=== PATIENT | female | born 1945 | race Caucasian/White ===

== ENCOUNTER 2016-12-24 00:28 | Inpatient (IN) | payer MEDICARE ==
[~2016-12-24] VITALS: Ht 162.6 cm; Wt 90.4 kg
[2016-12-24] VITALS (22 sets, daily range): BP systolic 88–123; BP diastolic 50–87; PULSE 87–121; RESP 15–18; TEMP 97.7–99; O2SAT 98–100
[2016-12-24] MEDS ORDERED: SODIUM CHLORIDE 0.9% FLUSH 10 ML FLUSH IVF PRN (00:30)
[2016-12-24] MEDS ORDERED: MIDAZOLAM 100 MG/ML INJ 100 ML IV SCH (00:30)
[2016-12-24] MEDS ORDERED: CEFEPIME INJ 2,000 MG in SODIUM CHLORIDE 0.9% INJ 100 ML IV ONE (00:30)
[2016-12-24] MEDS ORDERED: SODIUM CHLOR 0.9% 1000 ML INJ 1,000 ML IV ONE ×5 (00:30→02:43)
[2016-12-24] MEDS ORDERED: AZITHROMYCIN INJ 500 MG in SODIUM CHLOR 0.9% 250 ML INJ 250 ML IV ONE (00:30)
[2016-12-24] MEDS ORDERED: MIDAZOLAM HCL 2 MG/2 ML VIAL IV ONE (00:30)
--- NOTE | 2016-12-24 00:41 | PD ---
HPI Chief Complaint: Respiratory Distress Time Seen by Provider: 00:30 Travel History International Travel<30 days: No (unable to obtain, intubated) Contact w/Intl Traveler<30days: No Traveled to known affect area: No History of Present Illness HPI The patient is a 71-year-old female who presents to the emergency department via EMS for respiratory distress and subsequent respiratory failure. According to EMS the patient was recently diagnosed with bronchitis and has been dealing with shortness of breath and chest congestion. The patient used her inhaler several times earlier today without any alleviation of her symptoms and [place] EMS states when they arrived the patient was short of breath, had audible wheezing, with a respiratory rate of 30, they then stated she had increased work of breathing and her GCS dropped to 9 with significant increase in respiratory rate and work of breathing. Therefore, EMS initially tried to place the patient on BiPAP, but subsequent intubated the patient in the field. The patient received Ativan 4 mg intravenously, etomidate 20 mg intravenously, and morphine 8 mg intravenously. The patient does have a history of COPD according to EMS but no known history congestive heart failure. EMS states the patient bit her tongue after intubation, therefore, they called M.D. control and were advised to administer the morphine prior to arrival. No further information is obtainable from the patient. The patient has a history of allergies to latex and Remicade. [facility] Past Medical History Narrative Medical COPD according to EMS Past Surgical History Surgical History: Unable to Obtain Social History Tobacco Use: No (unable to obtain, patient is intubated) Allergies-Medications (Allergen,Severity, Reaction): Coded Allergies: Latex (Verified Allergy, Severe, 12/24/16) Remicade (Verified Allergy, Intermediate, 12/24/16) Reported Meds & Prescriptions Reported Meds & Active Scripts Active Reported Stiolto Respimat Inh (Tiotropium-Olodaterol Inh) 2.5-2.5 Mcg/Act Aero 2 Puff INH DAILY Ofloxacin Opth Drops 0.3 % Drops 1 Drop EACH EYE Q6HR Atenolol 25 Mg Tab 25 Mg PO DAILY Tizanidine (Tizanidine HCl) 4 Mg Cap 4 Mg PO Q6 Lasix (Furosemide) 40 Mg Tab 40 Mg PO BID Allopurinol 100 Mg Tab 100 Mg PO DAILY Hydrocodone-Acetaminophen 5-325 mg Tab 1 Tab PO Q12 PRN Promethazine (Promethazine HCl) 12.5 Mg Tab 12.5 Mg PO Q4H PRN Hydrochlorothiazide 12.5 Mg Tab 12.5 Mg PO DAILY Robitussin 12 Hour Cough Liq (Dextromethorphan Polistirex Liq) 30 Mg/5 Ml Anupama 5 Ml PO Q12H PRN 19 ( Vit W/ Docusate-Fe Fu) 1 Tab Tab 1 Tab PO DAILY Nexium 24 HR (Esomeprazole DR) 20 Mg Tabdr 22.3 Mg PO DAILY Morphine ER (Morphine Sulfate) 15 Mg Tab 15 Mg PO DAILY Zoloft (Sertraline HCl) 50 Mg Tab 50 Mg PO DAILY Vitamin D3 (Cholecalciferol) 2,000 Unit Cap 2,000 Units PO DAILY Review of Systems ROS Limitations: Intubated, Other: (history obtained from EMS) Except as stated in HPI: all other systems reviewed are Neg Respiratory: Positive: Cough, Shortness of Breath, Wheezing Physical Exam Narrative GENERAL: 71-year-old female who arrives via EMS intubated on a ventilator. SKIN: Focused skin assessment warm/dry. HEAD: Atraumatic. Normocephalic. EYES: Pupils equal and round. 2 mm bilateral. Slow to react. ENT: No nasal bleeding or discharge. Endotracheal tube in place. Blood noted on the lower lip. NECK: Trachea midline. No JVD. CARDIOVASCULAR: Regular, tachycardic with a heart rate of 125. RESPIRATORY: Ventilated, bilateral breath sounds with prolonged expiratory phase , type breath sounds, and late wheeze. GASTROINTESTINAL: Abdomen soft, visible large ventral hernia that is reducible. MUSCULOSKELETAL: No obvious deformities. No clubbing. No cyanosis. No edema. NEUROLOGICAL: Intubated. PSYCHIATRIC: Unable to obtain. Data Data Last Documented VS Vital Signs Date Time Temp Pulse Resp B/P Pulse Ox O2 Delivery O2 Flow Rate FiO2 12/24/16 02:07 92 18 89/52 100 Ventilator 60 12/24/16 00:41 99.0 Orders Complete Blood Count With Diff (12/24/16 00:30) Comprehensive Metabolic Panel (12/24/16 00:30) B-Type Natriuretic Peptide (12/24/16 00:30) Act Partial Throm Time (Ptt) (12/24/16 00:30) Prothrombin Time / Inr (Pt) (12/24/1630) Magnesium (Mg) (12/24/16:30) Ckmb (Isoenzyme) Profile (12/24/16) Troponin I (12/24/16) Arterial Blood Gas (Abg) (12/24/16) Urinalysis - C+S If Indicated (12/24/16) Influenzae A/B Antigen (12/24/16) Blood Culture (12/24/16) Iv Access Insert/Monitor (12/24/16) Electrocardiogram (12/24/16) Ecg Monitoring (12/24/16) Oximetry (12/24/16) Oxygen Administration (12/24/16) Chest, Single Ap (12/24/16) Urinary Catheter Insert/Apply (12/24/16) Sodium Chloride 0.9% Flush (Ns Flush) (12/24/16) Albuterol-Ipratropium Neb (Duoneb Neb) (12/24/1630) Midazolam Inj (Versed Inj) (12/24/1630) Midazolam Inj (Versed Inj) (12/24/1630) Neurological Rass Scale Q30MX2,Q2HX4,Q4H (12/24/16:30) Neurological Rass Scale Q30MX2,Q2HX4,Q4H (12/24/16:30) Fentanyl Drip (Fentanyl Drip) (12/24/16:30) Lactic Acid (12/24/16:30) Sodium Chlor 0.9% 1000 Ml Inj (Ns 1000 M (12/24/16 00:30) Cefepime Inj (Maxipime Inj) (12/24/16:30) Azithromycin Inj (Zithromax Inj) (12/24/16:30) Sodium Chlor 0.9% 1000 Ml Inj (Ns 1000 M (12/24/16 01:00) Sodium Chlor 0.9% 1000 Ml Inj (Ns 1000 M (12/24/16 01:00) CKMB (12/24/16:30) CKMB% (4/22/17 00:30) Aspirin Supp (Aspirin Supp) (12/24/16 02:00) Admit Order (Ed Use Only) (12/24/16 02:21) Labs Laboratory Tests Test 12/24/16 12/24/16 00:30 01:30 White Blood Count 19.9 TH/MM3 Red Blood Count 4.35 MIL/MM3 Hemoglobin 12.8 GM/DL Hematocrit 40.1 % Mean Corpuscular Volume 92.3 FL Mean Corpuscular Hemoglobin 29.5 PG Mean Corpuscular Hemoglobin 31.9 % Concent Red Cell Distribution Width 14.5 % Platelet Count 269 TH/MM3 Mean Platelet Volume 8.0 FL Neutrophils (%) (Auto) 78.7 % Lymphocytes (%) (Auto) 16.5 % Monocytes (%) (Auto) 4.1 % Eosinophils (%) (Auto) 0.3 % Basophils (%) (Auto) 0.4 % Neutrophils # (Auto) 15.6 TH/MM3 Lymphocytes # (Auto) 3.3 TH/MM3 Monocytes # (Auto) 0.8 TH/MM3 Eosinophils # (Auto) 0.0 TH/MM3 Basophils # (Auto) 0.1 TH/MM3 CBC Comment DIFF FINAL Differential Comment Prothrombin Time 12.3 SEC Prothromb Time International 1.1 RATIO Ratio Activated Partial 32.4 SEC Thromboplast Time Urine Color YELLOW Urine Turbidity CLEAR Urine pH 5.0 Urine Specific [place] 1.014 Urine Protein 100 mg/dL Urine Glucose (UA) NEG mg/dL Urine Ketones NEG mg/dL Urine Occult Blood NEG Urine Nitrite NEG Urine Bilirubin NEG Urine Urobilinogen LESS THAN 2.0 MG/DL Urine Leukocyte Esterase NEG Urine RBC 5 /hpf Urine WBC 2 /hpf Urine Squamous Epithelial 1 /hpf Cells Urine Amorphous Sediment FEW Urine Bacteria RARE /hpf Urine Hyaline Casts 21 /lpf Urine Mucus FEW /lpf Microscopic Urinalysis Comment CULT NOT INDICATED Sodium Level 135 MEQ/L Potassium Level 4.0 MEQ/L Chloride Level 100 MEQ/L Carbon Dioxide Level 19.6 MEQ/L Anion Gap 15 MEQ/L Blood Urea Nitrogen 31 MG/DL Creatinine 1.61 MG/DL Estimat Glomerular Filtration 32 ML/MIN Rate Random Glucose 372 MG/DL Lactic Acid Level 2.9 mmol/L Calcium Level 8.2 MG/DL Magnesium Level 1.4 MG/DL Total Bilirubin 0.8 MG/DL Aspartate Amino Transf 25 U/L (AST/SGOT) Alanine Aminotransferase 22 U/L (ALT/SGPT) Alkaline Phosphatase 100 U/L Total Creatine Kinase 215 U/L Creatine Kinase MB 7.7 NG/ML Creatine Kinase MB % 3.6 % Troponin I 0.23 NG/ML B-Type Natriuretic Peptide 302 PG/ML Total Protein 7.8 GM/DL Albumin 3.6 GM/DL Blood Gas Puncture Site RT FOOT Blood Gas Patient Temperature 98.6 Blood Gas HCO3 17 mmol/L Blood Gas Base Excess -9.5 mmol/L Blood Gas Oxygen Saturation 99 % Arterial Blood pH 7.21 Arterial Blood Partial 44 mmHg Pressure CO2 Arterial Blood Partial 480 mmHG Pressure O2 Arterial Blood Oxygen Content 16.1 Vol % Arterial Blood 1.3 % Carboxyhemoglobin Arterial Blood Methemoglobin 0.1 % Blood Gas Hemoglobin 10.7 G/DL Oxygen Delivery Device VENTILATOR Blood Gas Ventilator Setting Blood Gas Inspired Oxygen 100 % MDM Medical Decision Making Medical Screen Exam Complete: Yes Emergency Medical Condition: Yes Medical Record Reviewed: Yes Interpretation(s) EKG reveals sinus tachycardia with a heart rate of 126. RSR prime, appears to be intraventricular conduction delay versus right bundle-branch block. Chest x-ray reveals endotracheal tube in good position. Right lower lobe infiltrate. Differential Diagnosis Differential diagnosis includes COPD exacerbation, respiratory distress, respiratory failure, pneumonia, pulmonary embolism, acute coronary syndrome, STEMI, pleural effusion, metabolic acidosis. Narrative Course IV was established, labs are drawn and sent, and the patient was placed on cardiac telemetry monitoring and continuous pulse oximetry monitoring. EKG was ordered and interpreted. Chest x-ray was obtained as patient was intubated in field and placed on a ventilator. Blood cultures and lactic acid were sent to lab. The patient was administered DuoNeb nebs 3, she received Solu-Medrol 125 g intravenously by EMS prior to arrival. After blood cultures and lactic acid were sent to lab, patient was administered cefepime and Zithromax, rectal temperature was 99. The patient was placed on a Versed drip and a fentanyl drip , administered Versed 5 mg intravenously upon arrival secondary to biting on the endotracheal tube. The patient was administered 3 L of IV fluids, her blood pressure remained with a systolic in the 80s and diastolic in the 50s, if this persists after 3 L of fluid, patient will need Levophed. Chest x-ray reveals round pneumonia, patient's white count is elevated, patient is tachycardic, has elevated lactic acid, and elevated creatinine, consistent with severe sepsis, however, patient's blood pressure is low despite 3 L, consistent with septic shock. I do discussion with the patient's at bedside. The patient will be admitted to the intensive care unit. A call was placed to the on-call multi craft maintenance technician for admission. Troponin was elevated, most likely secondary to the sepsis/lactic acidosis with acute renal failure, however, patient was administered aspirin rectally. After the third liter of IV fluids, the patient's blood pressure responded with a systolic in the 120s and diastolic in the 80s, therefore, no acute indication for Levophed. Critical Care Narrative Aggregate critical care time was 40 minutes. Time to perform other separately billable procedures was not included in the critical care time. My time did not include minutes spent treating any other patients simultaneously or on activities that did not directly contribute to the patient's treatment. The services I provided to this patient were to treat and/or prevent clinically significant deterioration that could result in: Anoxia, hypoxia, aspiration, sepsis, septic shock, . I provided critical care services requiring my management, as noted below: Chart data review, documentation time, medication orders and management, vital sign assessments/reviewing monitor data, ordering and reviewing lab tests, ordering and interpreting/reviewing x-rays and diagnostic studies, care of the patient and discussion of the patient with the admitting physicians. Sepsis Criteria SIRS Criteria (2 or more): Heart rate over 90, WBC > 44486, < 4000 or > 10% bands Severe Sepsis (+one): Lactate >2 Septic Shock Criteria: Unresponsive to 30ml/kg fluid bolus Criteria Outcome: Meets septic shock criteria Physician Communication Physician Communication The on-call multi craft maintenance technician was paged for admission. I discussed the patient with Dr. Rene who agrees with admission. Diagnosis Primary Impression: Respiratory failure Qualified Code: J96.00 - Acute respiratory failure, unspecified whether with hypoxia or hypercapnia Additional Impressions: Septic shock Pneumonia Qualified Code: J18.1 - Pneumonia of right lower lobe due to infectious organism Admitting Information Admitting Physician Requests: Admit Condition: Critical Marquez Kinsey MD Dec 24, 2016 00:41
[2016-12-24] MEDS: fentaNYL DRIP 250 ML IV SCH (00:46)
[2016-12-24 00:59] LABS: BACTERIA, URINE RARE /hpf; BLOOD, URINE NEG (NEG); COMMENT (UR) CULT NOT INDICATED; CULTURE IF INDICATED CULT NOT INDICATED; GLUCOSE,URINE NEG (NEG); HYALINE CAST, URINE 21 /lpf (RARE); KETONE, URINE NEG (NEG); MUCUS URINE FEW /lpf (OCC); NITRITE,URINE NEG (NEG); SQUAMOUS EPITHELIAL CELL URINE 1 /hpf (0-5); URINE COLOR YELLOW (YELLW/STRAW)
[2016-12-24 01:00] LABS: AUTOMATED NEUTROPHIL # 15.6 TH/MM3 (1.8-7.7); BASOPHIL # 0.1 TH/MM3 (0-0.2); BASOPHIL % 0.4 % (0.0-2.0); EOSINOPHIL % 0.3 % (0.0-4.0); HEMATOCRIT 40.1 % (35.0-46.0); HEMO FLAGS DIFF FINAL; LYMPH % 16.5 % (9.0-44.0); LYMPHOCYTE # 3.3 TH/MM3 (1.0-4.8); MEAN CELL VOLUME 92.3 FL (80.0-100.0); MEAN CORPUSCULAR HEMOGLOBIN 29.5 PG (27.0-34.0); MEAN CORPUSCULAR HGB CONC 31.9 % (32.0-36.0); MONO % 4.1 % (0.0-8.0); NEUT % 78.7 % (16.0-70.0); PLATELET COUNT 269 TH/MM3 (150-450); RED BLOOD COUNT 4.35 MIL/MM3 (4.00-5.30); RED CELL DISTRIBUTION WIDTH 14.5 % (11.6-17.2); WHITE BLOOD COUNT 19.9 TH/MM3 (4.0-11.0)
[2016-12-24] MEDS ORDERED: DEXT1SUS PO (01:00)
[2016-12-24] MEDS ORDERED: MORP1TAB24 PO (01:00)
[2016-12-24] MEDS ORDERED: ZOLO50TA PO (01:00)
[2016-12-24] MEDS ORDERED: VITA2000 PO (01:00)
[2016-12-24] MEDS ORDERED: PRENTAB60 PO (01:00)
[2016-12-24] MEDS ORDERED: ESOM1TAB PO (01:00)
[2016-12-24] MEDS ORDERED: HYDR12.56 PO (01:00)
[2016-12-24] MEDS: RESP: ALBUTEROL 2.5 MG/IPRATROPIUM 0.5 MG NEB (SCH) INH ×7 (01:02→23:38)
[2016-12-24] MEDS ORDERED: ALLO100T PO (01:06)
[2016-12-24] MEDS ORDERED: OFLO0.3D5 EACH EYE (01:06)
[2016-12-24] MEDS ORDERED: ATEN25TA PO (01:06)
[2016-12-24] MEDS ORDERED: HYDR-3516 PO (01:06)
[2016-12-24] MEDS ORDERED: PROM12.54 PO (01:06)
[2016-12-24] MEDS ORDERED: FURO1TAB60 PO (01:06)
[2016-12-24] MEDS ORDERED: TIOT1AER INH (01:06)
[2016-12-24] MEDS ORDERED: TIZA4CAP3 PO (01:06)
[2016-12-24 01:15] LABS: APTT (PATIENT) 32.4 SEC (24.3-30.1); INTERNATIONAL NORMALIZED RATIO 1.1 RATIO; PROTHROMBIN TIME - PATIENT 12.3 SEC (9.8-11.6)
[2016-12-24 01:18] LABS: ALKALINE PHOSPHATASE 100 U/L (45-117); CREATINE KINASE 215 U/L (26-192); TOTAL BILIRUBIN ADULT 0.8 MG/DL (0.2-1.0)
[2016-12-24 01:23] LABS: ALT (GPT) 22 U/L (10-53); ANION GAP 15 MEQ/L (5-15); AST (GOT) 25 U/L (15-37); BICARBONATE 19.6 MEQ/L (21.0-32.0); BLOOD UREA NITROGEN 31 MG/DL (7-18); CHLORIDE 100 MEQ/L (98-107); GLOMERULAR FILTRATION RATE 32 ML/MIN (>89); MAGNESIUM 1.4 MG/DL (1.5-2.5); SODIUM (NA) 135 MEQ/L (136-145)
[2016-12-24 01:30] LABS: CKMB 7.7 NG/ML (0.5-3.6)
[2016-12-24] MEDS ORDERED: ASPIRIN 300 MG SUPP RECTAL ONE (02:00)
--- NOTE | 2016-12-24 02:17 | RADRPT ---
EXAM DATE/TIME: 12/24/2016 01:44 [facility] COMPARISON: No previous studies available for comparison. INDICATIONS : Post intubation. MEDICAL HISTORY : Hypertension. Chronic obstructive pulmonary disease. Diabetes mellitus type II. Smoker. SURGICAL HISTORY : Coronary artery stent. ENCOUNTER: Initial ACUITY: 1 day PAIN SCORE: 2/10 LOCATION: Bilateral chest FINDINGS: A single portable frontal view the chest shows an endotracheal tube with the tip 3 cm proximal to car jarocho. Tip of the nasogastric tube is in the fundus of the stomach. A right lower lobe rounded consolid ation is observed. Left lung is clear. No effusions. Heart is normal in size. CONCLUSION: 1. Endotracheal tube in good position. 2. Right lower lobe infiltrate. Ramsey Sinclair Jr., MD on December 24, 2016 at 2:15 Board Certified Radiologist. This report was verified electronically.
[2016-12-24 02:28] LABS: BLOOD GAS BASE EXCESS -9.5 mmol/L (-2-2); BLOOD GAS CARBOXYHEMOGLOBIN 1.3 % (0-4); BLOOD GAS HCO3 17 mmol/L (22-26); BLOOD GAS METHEMOGLOBIN 0.1 % (0-2); BLOOD GAS O2 HGB SATURATION 99 % (90-100); BLOOD GAS OXYGEN CONTENT 16.1 Vol % (12.0-20.0); BLOOD GAS PCO2 44 mmHg (38-42); BLOOD GAS PO2 480 mmHG (61-120); BLOOD GAS TOTAL HGB 10.7 G/DL (12.0-16.0); TEMP CORR TO 98.6
[2016-12-24 02:29] LABS: CRITICAL VALUE YES; DRAW SITE RT FOOT; FIO2 100 %; NUMBER OF ARTERIAL PUNCTURES 1; OXYGEN DEVICE VENTILATOR; STAT YES
[2016-12-24] MEDS ORDERED: SODIUM CHLOR 0.9% 1000 ML INJ 700 ML IV ONE (02:43)
[2016-12-24] MEDS ORDERED: MISCELLANEOUS NURSING INFORMATION XX SCH (02:45)
[2016-12-24] MEDS ORDERED: CHLORHEXIDINE GLUCONATE 2 % 1 PACK (2 CLOTHS) TOP PRN (02:45)
[2016-12-24] MEDS ORDERED: PIPERACIL-TAZO 4.5 GM PREMIX 100 ML IV SCH (02:45)
[2016-12-24] MEDS ORDERED: VANCOMYCIN INJ 1,000 MG in SODIUM CHLOR 0.9% 250 ML INJ 250 ML IV ONE (02:45)
[2016-12-24] MEDS ORDERED: Vancomycin Consult Pharmacy 1 EA OTHER SCH (02:45)
[2016-12-24] MEDS ORDERED: RESP: ALBUTEROL 2.5 MG/IPRATROPIUM 0.5 MG NEB (PRN) NEB (03:00)
[2016-12-24] MEDS: HYDROCORTISONE SOD SUCCINATE 100 MG VIAL IV SCH ×4 (03:13→20:27)
[2016-12-24] MEDS: PIPERACIL-TAZO 2.25 GM PREMIX 50 ML IV SCH ×4 (03:14→20:27)
[2016-12-24] MEDS ORDERED: VANCOMYCIN 1,500 MG/NS 500 ML IV ONE ×2 (04:00)
--- NOTE | 2016-12-24 04:27 | HHI.HP ---
HPI Service Critical Care Medicine Primary Care Physician Non-Staff Admission Diagnosis septic shock, right lower lobe pneumonia, lactic acidosis Diagnosis: Travel History International Travel<30 Days: No (unable to obtain, intubated) Contact w/Intl Traveler <30 Da: No Traveled to Known Affected Are: No History of Present Illness 71-year-old female presents via EMS for respiratory distress and respiratory failure. The patient was recently diagnosed with bronchitis and has been dealing with shortness of breath and chest congestion. The patient used her inhaler several times earlier today without any alleviation of her symptoms and EMS was subsequently called. Per medical record when EMS arrived the patient was short of breath, had audible wheezing, with a respiratory rate of 30, they then stated she had increased work of breathing and her GCS dropped to 9 with significant increase in respiratory rate and work of breathing. Therefore, EMS initially tried to place the patient on BiPAP, but subsequent intubated the patient in the field. Review of Systems ROS Unable to obtain patient is sedated and intubated Past Family Social History Allergies: Coded Allergies: Latex (Verified Allergy, Severe, 12/24/16) Remicade (Verified Allergy, Intermediate, 12/24/16) Past Medical History COPD Bronchitis Past Surgical History Unable to obtain Reported Medications Reported Meds & Active Scripts Active Reported Stiolto Respimat Inh (Tiotropium-Olodaterol Inh) 2.5-2.5 Mcg/Act Aero 2 Puff INH DAILY Ofloxacin Opth Drops 0.3 % Drops 1 Drop EACH EYE Q6HR Atenolol 25 Mg Tab 25 Mg PO DAILY Tizanidine (Tizanidine HCl) 4 Mg Cap 4 Mg PO Q6 Lasix (Furosemide) 40 Mg Tab 40 Mg PO BID Allopurinol 100 Mg Tab 100 Mg PO DAILY Hydrocodone-Acetaminophen 5-325 mg Tab 1 Tab PO Q12 PRN Promethazine (Promethazine HCl) 12.5 Mg Tab 12.5 Mg PO Q4H PRN Hydrochlorothiazide 12.5 Mg Tab 12.5 Mg PO DAILY Robitussin 12 Hour Cough Liq (Dextromethorphan Polistirex Liq) 30 Mg/5 Ml Anupama 5 Ml PO Q12H PRN 19 ( Vit W/ Docusate-Fe Fu) 1 Tab Tab 1 Tab PO DAILY Nexium 24 HR (Esomeprazole DR) 20 Mg Tabdr 22.3 Mg PO DAILY Morphine ER (Morphine Sulfate) 15 Mg Tab 15 Mg PO DAILY Zoloft (Sertraline HCl) 50 Mg Tab 50 Mg PO DAILY Vitamin D3 (Cholecalciferol) 2,000 Unit Cap 2,000 Units PO DAILY Active Ordered Medications Current Medications Medications (Trade) Dose Ordered Sig/Silva Route PRN Reason Start Time Stop Time Status Last Admin Dose Admin Sodium Chloride 2 ml 2 ml UNSCH PRN IVF FLUSH AFTER USING IV ACCESS 12/24/16 00:30 Midazolam HCl 100 ml @ 0 mls/hr TITRATE IV 12/24/16 00:30 Fentanyl Citrate (fentaNYL DRIP) 250 ml @ 0 mls/hr TITRATE IV 12/24/16 00:30 12/24/16 00:46 Hydrocortisone Sodium Succinate (SoluCORTEF INJ) 50 mg Q6H IV 12/24/16 03:00 12/24/16 03:13 Famotidine (Pepcid Inj) 10 mg Q12HR IV PUSH 12/24/16 09:00 Enoxaparin Sodium 40 mg 40 mg Q24H SQ 12/24/16 06:00 Pharmacy Profile Note 0 ml @ 0 mls/hr UNSCH OTHER 12/24/16 02:45 Azithromycin/ Sodium Chloride (Zithromax Inj/ NS 250 ml Inj) 250 ml @ 250 mls/hr Q24H IV 12/25/16 00:00 Miscellaneous Information 1 [id number] XX 12/24/16 02:45 Chlorhexidine Gluconate (Chlorhexidine 2% Cloth) 3 pack Taper DAILY@04 TOP 12/24/16 04:00 12/20/17 03:59 Chlorhexidine Gluconate (Chlorhexidine 2% Cloth) 3 pack UNSCH PRN TOP HYGIENIC CARE 12/24/16 02:45 Arginine HCl 1 pack 1 pack BID G-TUBE 12/24/16 09:00 Vancomycin HCl 1500 mg/Sodium Chloride 515 ml @ 257.5 mls/ hr ONCE ONCE IV 12/24/16 04:00 12/24/16 05:59 12/24/16 04:26 Piperacillin Sod/ Tazobactam Sod (Zosyn 2.25 Gm Premix) 50 ml @ 100 mls/hr Q6H IV 12/24/16 03:00 12/24/16 03:14 Family History Unable to obtain Social History Unable to obtain Physical Exam Vital Signs Vital Signs Date Time Temp Pulse Resp B/P Pulse Ox O2 Delivery O2 Flow Rate FiO2 12/24/16 03:37 100 50 12/24/16 03:25 87 18 122/87 100 Ventilator 60 12/24/16 02:07 92 18 89/52 100 Ventilator 60 12/24/16 01:25 104 18 88/50 100 Ventilator 100 12/24/16 00:41 99.0 109 18 95/65 100 Ventilator 100 12/24/16 00:39 100 Ventilator 100 12/24/16 00:32 99.0 121 18 100 12/24/16 00:20 100 100 Physical Exam GENERAL: Well-nourished, well-developed patient. Intubated and sedated SKIN: Warm and dry. HEAD: Normocephalic. EYES: No scleral icterus. No injection or drainage. NECK: Supple, trachea midline. No JVD or lymphadenopathy. CARDIOVASCULAR: Regular rate and rhythm without murmurs, gallops, or rubs. RESPIRATORY: Breath sounds equal bilaterally. No accessory muscle use. GASTROINTESTINAL: Abdomen soft, non-tender, nondistended. MUSCULOSKELETAL: No cyanosis, or edema. BACK: Nontender without obvious deformity. No CVA tenderness. EXTREMITIES: No clubbing cyanosis and edema Laboratory Laboratory Tests Test 12/24/16 12/24/16 00:30 01:30 White Blood Count 19.9 Red Blood Count 4.35 Hemoglobin 12.8 Hematocrit 40.1 Mean Corpuscular Volume 92.3 Mean Corpuscular Hemoglobin 29.5 Mean Corpuscular Hemoglobin 31.9 Concent Red Cell Distribution Width 14.5 Platelet Count 269 Mean Platelet Volume 8.0 Neutrophils (%) (Auto) 78.7 Lymphocytes (%) (Auto) 16.5 Monocytes (%) (Auto) 4.1 Eosinophils (%) (Auto) 0.3 Basophils (%) (Auto) 0.4 Neutrophils # (Auto) 15.6 Lymphocytes # (Auto) 3.3 Monocytes # (Auto) 0.8 Eosinophils # (Auto) 0.0 Basophils # (Auto) 0.1 CBC Comment DIFF FINAL Differential Comment Prothrombin Time 12.3 Prothromb Time International 1.1 Ratio Activated Partial 32.4 Thromboplast Time Urine Color YELLOW Urine Turbidity CLEAR Urine pH 5.0 Urine Specific [place] 1.014 Urine Protein 100 Urine Glucose (UA) NEG Urine Ketones NEG Urine Occult Blood NEG Urine Nitrite NEG Urine Bilirubin NEG Urine Urobilinogen LESS THAN 2.0 Urine Leukocyte Esterase NEG Urine RBC 5 Urine WBC 2 Urine Squamous Epithelial 1 Cells Urine Amorphous Sediment FEW Urine Bacteria RARE Urine Hyaline Casts 21 Urine Mucus FEW Microscopic Urinalysis Comment CULT NOT INDICATED Sodium Level 135 Potassium Level 4.0 Chloride Level 100 Carbon Dioxide Level 19.6 Anion Gap 15 Blood Urea Nitrogen 31 Creatinine 1.61 Estimat Glomerular Filtration 32 Rate Random Glucose 372 Lactic Acid Level 2.9 Calcium Level 8.2 Magnesium Level 1.4 Total Bilirubin 0.8 Aspartate Amino Transf 25 (AST/SGOT) Alanine Aminotransferase 22 (ALT/SGPT) Alkaline Phosphatase 100 Total Creatine Kinase 215 Creatine Kinase MB 7.7 Creatine Kinase MB % 3.6 Troponin I 0.23 B-Type Natriuretic Peptide 302 Total Protein 7.8 Albumin 3.6 Blood Gas Puncture Site RT FOOT Blood Gas Patient Temperature 98.6 Blood Gas HCO3 17 Blood Gas Base Excess -9.5 Blood Gas Oxygen Saturation 99 Arterial Blood pH 7.21 Arterial Blood Partial 44 Pressure CO2 Arterial Blood Partial 480 Pressure O2 Arterial Blood Oxygen Content 16.1 Arterial Blood 1.3 Carboxyhemoglobin Arterial Blood Methemoglobin 0.1 Blood Gas Hemoglobin 10.7 Oxygen Delivery Device VENTILATOR Blood Gas Ventilator Setting Blood Gas Inspired Oxygen 100 Date/Time Procedure Status Source Growth 12/24/16 00:52 Aerobic Blood Culture Received Blood Peripheral Pending 12/24/16 00:52 Anaerobic Blood Culture Received Blood Peripheral Pending Result Diagram: 12/24/16 0030 12/24/16 0030 Imaging Last 24 hours Impressions Chest X-Ray 12/24/160 Signed Impressions: Service Date/Time: Saturday, December 24, 2016 01:44 - CONCLUSION: 1. Endotracheal tube in good position. 2. Right lower lobe infiltrate. Ramsey Sinclair Jr., MD Assessment and Plan Assessment and Plan Respiratory failure - COPD exacerbation - Bilateral pneumonia - Continue mechanical ventilation - SBT and weaning trials daily COPD exacerbation - Broad-spectrum antibiotic - IV steroid - DuoNeb scheduled and when necessary Bilateral pneumonia - Broad-spectrum antibiotic - Follow-up cultures - Urine antigens DVT GI prophylaxis - Lovenox Pepcid Critical Care: The total critical care time was 35 minutes. Time to perform other separately billable procedures was not included in the critical care time. Fly Rene MD Dec 24, 2016 04:27
[2016-12-24] MEDS: ENOXAPARIN SODIUM 40 MG/0.4 ML SYRINGE SQ SCH (06:15)
[2016-12-24 06:50] LABS: LACTIC ACID GHOST NOT REPORTABLE
[2016-12-24] MEDS: JUVEN POWDER 1 PACK G-TUBE SCH ×2 (09:00→21:00)
[2016-12-24] MEDS: FAMOTIDINE 20 MG/2 ML VIAL IV PUSH SCH ×2 (09:00→20:27)
[2016-12-24] MEDS ORDERED: NOREPINEPHRINE-DEXTROSE DRIP 250 ML IV ONE (10:37)
[2016-12-24 12:18] LABS: AUTOMATED NEUTROPHIL # 9.4 TH/MM3 (1.8-7.7); BASOPHIL % 0.1 % (0.0-2.0); HEMATOCRIT 36.8 % (35.0-46.0); HEMO FLAGS DIFF FINAL; LYMPHOCYTE # 0.7 TH/MM3 (1.0-4.8); MEAN CELL VOLUME 91.5 FL (80.0-100.0); MEAN CORPUSCULAR HEMOGLOBIN 29.7 PG (27.0-34.0); MEAN CORPUSCULAR HGB CONC 32.4 % (32.0-36.0); NEUT % 90.9 % (16.0-70.0); PLATELET COUNT 179 TH/MM3 (150-450); RED BLOOD COUNT 4.03 MIL/MM3 (4.00-5.30); RED CELL DISTRIBUTION WIDTH 14.6 % (11.6-17.2); WHITE BLOOD COUNT 10.4 TH/MM3 (4.0-11.0)
[2016-12-24 12:38] LABS: BICARBONATE 18.8 MEQ/L (21.0-32.0); MAGNESIUM 1.5 MG/DL (1.5-2.5); POTASSIUM 5.2 MEQ/L (3.5-5.1); TOTAL BILIRUBIN ADULT 0.6 MG/DL (0.2-1.0)
--- NOTE | 2016-12-24 13:47 | EKG ---
Date Performed: 12/24/2016 Time Performed: 00:31:57 PTAGE: 71 years EKG: SINUS TACHYCARDIA MARKED RIGHT AXIS DEVIATION Right bundle branch block Clinical correlatio n is recommended ABNORMAL ECG INTERPRETATION BASED ON A DEFAULT AGE OF 40 YEARS NO PREVIOUS TRACING DOCTOR: Alexis Mckeon Interpretating Date/Time 12/24/2016 13:42:25
[2016-12-24] MEDS ORDERED: VANCOMYCIN INJ 1,250 MG in SODIUM CHLOR 0.9% 250 ML INJ 250 ML IV SCH (16:00)
[2016-12-24] MEDS ORDERED: SODIUM CHLORID 0.9% 500 ML INJ 500 ML IV ONE (22:45)
[2016-12-25] VITALS (16 sets, daily range): BP systolic 96–152; BP diastolic 49–69; PULSE 87–110; RESP 17–23; TEMP 97.8–98.7; O2SAT 95–99
[2016-12-25] MEDS: AZITHROMYCIN INJ 500 MG in SODIUM CHLOR 0.9% 250 ML INJ 250 ML IV SCH (00:20)
[2016-12-25] MEDS: fentaNYL DRIP 250 ML IV SCH (01:06)
[2016-12-25] MEDS: PIPERACIL-TAZO 2.25 GM PREMIX 50 ML IV SCH ×4 (03:41→21:58)
[2016-12-25] MEDS: HYDROCORTISONE SOD SUCCINATE 100 MG VIAL IV SCH ×4 (03:41→21:58)
[2016-12-25] MEDS: CHLORHEXIDINE GLUCONATE 2 % 1 PACK (2 CLOTHS) TOP SCH (03:42)
[2016-12-25] MEDS: RESP: ALBUTEROL 2.5 MG/IPRATROPIUM 0.5 MG NEB (SCH) INH ×6 (05:04→21:58)
[2016-12-25 05:15] LABS: BICARBONATE 18.8 MEQ/L (21.0-32.0); POTASSIUM 5.1 MEQ/L (3.5-5.1); TOTAL BILIRUBIN ADULT 0.3 MG/DL (0.2-1.0)
[2016-12-25 05:18] LABS: CALCIUM-PROTEIN CORRECTED 7.4 MG/DL (8.5-10.1)
[2016-12-25 05:49] LABS: BASOPHIL % 0.1 % (0.0-2.0); HEMATOCRIT 35.9 % (35.0-46.0); HEMO FLAGS DIFF FINAL; LYMPH % 8.9 % (9.0-44.0); LYMPHOCYTE # 0.8 TH/MM3 (1.0-4.8); MEAN CORPUSCULAR HEMOGLOBIN 29.8 PG (27.0-34.0); MEAN CORPUSCULAR HGB CONC 31.7 % (32.0-36.0); MONO % 6.3 % (0.0-8.0); NEUT % 84.7 % (16.0-70.0); PLATELET COUNT 143 TH/MM3 (150-450); RED BLOOD COUNT 3.82 MIL/MM3 (4.00-5.30); RED CELL DISTRIBUTION WIDTH 14.6 % (11.6-17.2); WHITE BLOOD COUNT 9.5 TH/MM3 (4.0-11.0)
[2016-12-25] MEDS ORDERED: DEXTROSE 50% IN WATER 50 ML VIAL(D50) IV PUSH PRN (06:15)
[2016-12-25] MEDS: ENOXAPARIN SODIUM 40 MG/0.4 ML SYRINGE SQ SCH (06:36)
--- NOTE | 2016-12-25 06:41 | RADRPT ---
EXAM DATE/TIME: 12/25/2016 05:35 [facility] COMPARISON: CHEST SINGLE AP, December 24, 2016, 1:44. INDICATIONS : Shortness of breath, possible pulmonary disease. MEDICAL HISTORY : Hypertension. Chronic obstructive pulmonary disease. Diabetes mellitus type II. SURGICAL HISTORY : Coronary artery stent. ENCOUNTER: Subsequent ACUITY: 2 days PAIN SCORE: Non-responsive. LOCATION: Bilateral chest FINDINGS: Tip of the endotracheal tube 3 cm proximal to jillian. Nasogastric tube coiled in the stomach. Worseni ng consolidation of the right lower lobe. Left lung is clear. Heart is normal in size. No effusions. CONCLUSION: Some worsening of the consolidation in the right lower lobe. Ramsey Sinclair Jr., MD on December 25, 2016 at 6:38 Board Certified Radiologist. This report was verified electronically.
[2016-12-25 07:39] LABS: BACTERIA, URINE RARE /hpf; BLOOD, URINE MOD (NEG); GLUCOSE,URINE TRACE mg/dL (NEG); GRANULAR CAST, URINE 1 /lpf; HYALINE CAST, URINE 1 /lpf (RARE); KETONE, URINE TRACE mg/dL (NEG); NITRITE,URINE NEG (NEG); PH, URINE 5.5 (5.0-8.5); SQUAMOUS EPITHELIAL CELL URINE <1 /hpf (0-5); URINE COLOR YELLOW (YELLW/STRAW)
--- NOTE | 2016-12-25 08:46 | HHI.CCPN ---
Subjective Remarks/Hospital Course 12/24: 71-year-old female presents via EMS for respiratory distress and respiratory failure. The patient was recently diagnosed with bronchitis and has been dealing with shortness of breath and chest congestion. The patient used her inhaler several times earlier today without any alleviation of her symptoms and EMS was subsequently called. Per medical record when EMS arrived the patient was short of breath, had audible wheezing, with a respiratory rate of 30, they then stated she had increased work of breathing and her GCS dropped to 9 with significant increase in respiratory rate and work of breathing. Therefore, EMS initially tried to place the patient on BiPAP, but subsequent intubated the patient in the field. 12/25: Awakens easily off sedation and following commands this morning. Remains orally intubated on mechanical ventilation. Initiated C Pap trials. Borderline urine output overnight. Tolerating tube feeds. Objective Vital Signs Date Time Temp Pulse Resp B/P Pulse Ox O2 Delivery O2 Flow Rate FiO2 12/25/16 08:09 30 12/25/16 07:28 96 12/25/16 07:00 Mechanical Ventilator 12/25/16 06:00 97 12/25/16 04:00 98.4 19 141/66 Intake and Output 12/24/16 12/24/16 12/25/16 08:00 16:00 00:00 Intake Total 442 ml 749 ml Output Total 300 ml 100 ml Balance 142 ml 649 ml Result Diagram: 12/25/16 0406 12/25/16 0406 Other Results Laboratory Tests Test 12/24/16 12/24/16 12/24/16 12/25/16 09:15 10:20 11:49 04:06 Lactic Acid Level 1.2 mmol/L 1.9 mmol/L Nasal Screen MRSA (PCR) MRSA NOT DETECTED White Blood Count 10.4 TH/MM3 9.5 TH/MM3 Red Blood Count 4.03 MIL/MM3 3.82 MIL/MM3 Hemoglobin 12.0 GM/DL 11.4 GM/DL Hematocrit 36.8 % 35.9 % Mean Corpuscular Volume 91.5 FL 94.0 FL Mean Corpuscular Hemoglobin 29.7 PG 29.8 PG Mean Corpuscular Hemoglobin 32.4 % 31.7 % Concent Red Cell Distribution Width 14.6 % 14.6 % Platelet Count 179 TH/MM3 143 TH/MM3 Mean Platelet Volume 7.9 FL 7.8 FL Neutrophils (%) (Auto) 90.9 % 84.7 % Lymphocytes (%) (Auto) 7.0 % 8.9 % Monocytes (%) (Auto) 2.0 % 6.3 % Eosinophils (%) (Auto) 0.0 % 0.0 % Basophils (%) (Auto) 0.1 % 0.1 % Neutrophils # (Auto) 9.4 TH/MM3 8.0 TH/MM3 Lymphocytes # (Auto) 0.7 TH/MM3 0.8 TH/MM3 Monocytes # (Auto) 0.2 TH/MM3 0.6 TH/MM3 Eosinophils # (Auto) 0.0 TH/MM3 0.0 TH/MM3 Basophils # (Auto) 0.0 TH/MM3 0.0 TH/MM3 CBC Comment DIFF FINAL DIFF FINAL Differential Comment Sodium Level 138 MEQ/L 139 MEQ/L Potassium Level 5.2 MEQ/L 5.1 MEQ/L Chloride Level 107 MEQ/L 110 MEQ/L Carbon Dioxide Level 18.8 MEQ/L 18.8 MEQ/L Anion Gap 12 MEQ/L 10 MEQ/L Blood Urea Nitrogen 34 MG/DL 50 MG/DL Creatinine 1.90 MG/DL 2.28 MG/DL Estimat Glomerular Filtration 26 ML/MIN 21 ML/MIN Rate Random Glucose 359 MG/DL 416 MG/DL Calcium Level 6.8 MG/DL 7.0 MG/DL Protein Corrected Calcium 7.0 MG/DL 7.4 MG/DL Phosphorus Level 4.4 MG/DL Magnesium Level 1.5 MG/DL Total Bilirubin 0.6 MG/DL 0.3 MG/DL Aspartate Amino Transf 38 U/L 41 U/L (AST/SGOT) Alanine Aminotransferase 23 U/L 19 U/L (ALT/SGPT) Alkaline Phosphatase 71 U/L 63 U/L Total Protein 6.8 GM/DL 6.3 GM/DL Albumin 2.9 GM/DL 2.7 GM/DL Test 12/25/16 06:50 Urine Color YELLOW Urine Turbidity CLEAR Urine pH 5.5 Urine Specific [place] 1.026 Urine Protein 30 mg/dL Urine Glucose (UA) TRACE mg/dL Urine Ketones TRACE mg/dL Urine Occult Blood MOD Urine Nitrite NEG Urine Bilirubin NEG Urine Urobilinogen LESS THAN 2.0 MG/DL Urine Leukocyte Esterase TRACE Urine RBC 10 /hpf Urine WBC 3 /hpf Urine WBC Clumps RARE Urine Squamous Epithelial <1 /hpf Cells Urine Bacteria RARE /hpf Urine Hyaline Casts 1 /lpf Urine Granular Casts 1 /lpf Urine Eosinophils NONE SEEN /HPF Urine Random Creatinine 237.8 MG/DL Urine Random Sodium 15 MEQ/L Microbiology Date/Time Procedure Status Source Growth 12/24/16 00:30 Legionella Antigen - Final Complete Urine Catheterized Urine PRESUMPTIVE NEGATIVE FOR LEGIONELLA P... 12/24/16 00:30 Streptococcus pneumoniae Antigen (M - Final Complete Urine Catheterized Urine PRESUMPTIVE NEGATIVE FOR STREPTOCOCCU... Imaging Last 24 hours Impressions Chest X-Ray 12/25/16 0600 Signed Impressions: Service Date/Time: Sunday, December 25, 2016 05:35 - CONCLUSION: Some worsening of the consolidation in the right lower lobe. Ramsey Sinclair Jr., MD Last 24 hours Impressions Chest X-Ray 12/24/16 0030 Signed Impressions: Service Date/Time: Saturday, December 24, 2016 01:44 - CONCLUSION: 1. Endotracheal tube in good position. 2. Right lower lobe infiltrate. Ramsey Sinclair Jr., MD Objective Remarks GENERAL: Well-nourished, well-developed patient. Intubated on mechanical ventilation SKIN: Warm and dry. HEAD: Normocephalic. EYES: No scleral icterus. No injection or drainage. NECK: Supple, trachea midline. No JVD or lymphadenopathy. CARDIOVASCULAR: Regular rate and rhythm without murmurs, gallops, or rubs. RESPIRATORY: Orally intubated on mechanical ventilation, Breath sounds equal bilaterally. Scattered rhonchi, no wheezing GASTROINTESTINAL: Abdomen soft, non-tender, nondistended. EXTREMITIES: No clubbing cyanosis and edema Neuro: Awake and alert off sedation, orally intubated, following commands, moving all 4 extremities. A/P Assessment and Plan Respiratory failure - COPD exacerbation - Bilateral pneumonia - Continue mechanical ventilation -Started C Pap trial which she is tolerating, ordered extubation COPD exacerbation - Broad-spectrum antibiotic - IV steroid - DuoNeb scheduled and when necessary Bilateral pneumonia - Broad-spectrum antibiotic - Follow-up cultures - Urine antigens CAT - IV hydration, strict intake output, monitor and replete elect lites, follow BUN/creatinine. Initiating bicarbonate drip. Follow potassium level. Diabetes mellitus -Sliding-scale insulin for glycemic control DVT GI prophylaxis - Lovenox Pepcid Critical Care: The total critical care time was 35 minutes. Time to perform other separately billable procedures was not included in the critical care time. Zeyad Skinner MD Dec 25, 2016 08:46
[2016-12-25] MEDS: JUVEN POWDER 1 PACK G-TUBE SCH ×2 (09:00→21:00)
[2016-12-25] MEDS: INSULIN NovoLIN REGULAR SUPPLEMENTAL SCALE SQ SCH ×4 (09:05→20:00)
[2016-12-25] MEDS: FAMOTIDINE 20 MG/2 ML VIAL IV PUSH SCH ×2 (09:06→21:58)
[2016-12-25] MEDS ORDERED: SODIUM CHLOR 0.9% 1000 ML INJ 1,000 ML IV SCH (11:30)
[2016-12-25] MEDS: SODIUM BICARBONATE 8.4% INJ 150 MEQ in WATER STERILE FOR INJ 850 ML IV SCH ×2 (12:44→20:00)
[2016-12-25] MEDS: INSULIN DETEMIR 100 UNITS/ML VIAL SQ SCH ×2 (14:00→21:59)
[2016-12-25] MEDS: OFLOXACIN 0.3% OPTH SOLN 5 ML BTL RIGHT EYE SCH ×3 (14:25→21:58)
[2016-12-26] VITALS (16 sets, daily range): BP systolic 123–152; BP diastolic 58–88; PULSE 98–148; RESP 20–32; TEMP 97.2–98.8; O2SAT 96–100
[2016-12-26] MEDS: AZITHROMYCIN INJ 500 MG in SODIUM CHLOR 0.9% 250 ML INJ 250 ML IV SCH (00:11)
[2016-12-26] MEDS: RESP: ALBUTEROL 2.5 MG/IPRATROPIUM 0.5 MG NEB (SCH) INH ×7 (00:12→23:04)
[2016-12-26] MEDS: INSULIN NovoLIN REGULAR SUPPLEMENTAL SCALE SQ SCH ×6 (00:30→22:09)
[2016-12-26] MEDS: ACETAMINOPHEN 325 MG TAB PO PRN ×2 (01:35→20:40)
[2016-12-26] MEDS: CHLORHEXIDINE GLUCONATE 2 % 1 PACK (2 CLOTHS) TOP SCH (03:08)
[2016-12-26] MEDS: PIPERACIL-TAZO 2.25 GM PREMIX 50 ML IV SCH ×4 (03:54→22:09)
[2016-12-26] MEDS: HYDROCORTISONE SOD SUCCINATE 100 MG VIAL IV SCH ×4 (03:54→22:08)
--- NOTE | 2016-12-26 04:37 | RADRPT ---
EXAM DATE/TIME: 12/26/2016 03:36 [facility] COMPARISON: CHEST SINGLE AP, December 25, 2016, 5:35. INDICATIONS : Evaluate for pneumonia. MEDICAL HISTORY : Hypertension. Chronic obstructive pulmonary disease. Diabetes mellitus type II. SURGICAL HISTORY : Coronary artery stent. ENCOUNTER: Subsequent ACUITY: 3 days PAIN SCORE: Non-responsive. LOCATION: Bilateral chest FINDINGS: The endotracheal tube and NG tube have been removed. There continues to be an infiltrate in the right lower lung suggestive of pneumonia. There are some interstitial changes bilaterally. The left lung r emains grossly clear. There is no pneumothorax. The heart size is stable. There are no pleural effusi ons. CONCLUSION: Mild increase in the right lower lung infiltrate. Joshua Ordoñez MD on December 26, 2016 at 4:35 Board Certified Radiologist. This report was verified electronically.
[2016-12-26 04:43] LABS: AUTOMATED NEUTROPHIL # 3.3 TH/MM3 (1.8-7.7); BASOPHIL % 0.2 % (0.0-2.0); EOSINOPHIL % 0.1 % (0.0-4.0); HEMATOCRIT 31.4 % (35.0-46.0); LYMPH % 15.2 % (9.0-44.0); LYMPHOCYTE # 0.6 TH/MM3 (1.0-4.8); MEAN CELL VOLUME 88.8 FL (80.0-100.0); MEAN CORPUSCULAR HEMOGLOBIN 29.8 PG (27.0-34.0); MEAN CORPUSCULAR HGB CONC 33.6 % (32.0-36.0); MONO % 6.5 % (0.0-8.0); PLATELET COUNT 89 TH/MM3 (150-450); RED BLOOD COUNT 3.53 MIL/MM3 (4.00-5.30); RED CELL DISTRIBUTION WIDTH 14.4 % (11.6-17.2); WHITE BLOOD COUNT 4.2 TH/MM3 (4.0-11.0)
[2016-12-26 04:50] LABS: HEMO FLAGS AUTO DIFF
[2016-12-26 05:41] LABS: BICARBONATE 21.3 MEQ/L (21.0-32.0); CALCIUM-PROTEIN CORRECTED 7.5 MG/DL (8.5-10.1); MAGNESIUM 1.5 MG/DL (1.5-2.5); OVALOCYTES 1+ (NORMAL); PLATELET ESTIMATE SMEAR LOW (NORMAL); PLATELET MORPHOLOGY NORMAL (NORMAL); POTASSIUM 3.6 MEQ/L (3.5-5.1); SCAN/DIFF AUTO DIFF CONFIRMED; TOTAL BILIRUBIN ADULT 0.4 MG/DL (0.2-1.0)
[2016-12-26] MEDS: ENOXAPARIN SODIUM 40 MG/0.4 ML SYRINGE SQ SCH (06:10)
[2016-12-26] MEDS: INSULIN DETEMIR 100 UNITS/ML VIAL SQ SCH ×2 (09:00→22:09)
[2016-12-26] MEDS: OFLOXACIN 0.3% OPTH SOLN 5 ML BTL RIGHT EYE SCH ×4 (09:18→21:00)
[2016-12-26] MEDS: FAMOTIDINE 20 MG/2 ML VIAL IV PUSH SCH ×2 (09:18→22:08)
[2016-12-26] MEDS ORDERED: VANCOMYCIN INJ 1,250 MG in SODIUM CHLOR 0.9% 250 ML INJ 250 ML IV ONE ×2 (11:15→12:00)
[2016-12-26] MEDS: SODIUM BICARBONATE 8.4% INJ 150 MEQ in WATER STERILE FOR INJ 850 ML IV SCH ×2 (12:13→16:42)
[2016-12-26] MEDS ORDERED: METOPROLOL TARTRATE 5 MG/5 ML VIAL ONE (12:34)
[2016-12-26] MEDS: DILTIAZEM HCL 25 MG/5 ML VIAL IVP PRN ×2 (13:34→14:03)
[2016-12-26] MEDS: DILTIAZEM INJ 125 MG in SODIUM CHLORIDE 0.9% INJ 100 ML IV SCH (13:36)
--- NOTE | 2016-12-26 14:17 | HHI.CCPN ---
Subjective Remarks/Hospital Course 12/24: 71-year-old female presents via EMS for respiratory distress and respiratory failure. The patient was recently diagnosed with bronchitis and has been dealing with shortness of breath and chest congestion. The patient used her inhaler several times earlier today without any alleviation of her symptoms and EMS was subsequently called. Per medical record when EMS arrived the patient was short of breath, had audible wheezing, with a respiratory rate of 30, they then stated she had increased work of breathing and her GCS dropped to 9 with significant increase in respiratory rate and work of breathing. Therefore, EMS initially tried to place the patient on BiPAP, but subsequent intubated the patient in the field. 12/25: Awakens easily off sedation and following commands this morning. Remains orally intubated on mechanical ventilation. Initiated C Pap trials. Borderline urine output overnight. Tolerating tube feeds. 12/26: Tmax 98.1. Early this a.m. the patient had 3 episodes acute onset dyspnea. Patient was placed on BiPAP. With resolutions of symptoms on an FiO2 of 0.35%. Early this afternoon the patient was noted to have new onset atrial fibrillation. The patient received metoprolol 2.5 mg without resolution. The patient was subsequently bolused with Cardizem and placed on a Cardizem infusion. The patient's previous home meds were noted to be atenolol which has not been initiated since admission to hospital will resume in a.m.. Noted chest x-ray infiltrate worsening, infectious disease consulted, appreciate recommendations. The patient continues on empiric antibiotics currently. Objective Vital Signs Date Time Temp Pulse Resp B/P Pulse Ox O2 Delivery O2 Flow Rate FiO2 12/26/16 13:46 98 35 12/26/16 08:00 111 12/26/16 08:00 Nasal Cannula 2.00 12/26/16 08:00 98.1 27 137/72 Intake and Output 12/25/16 12/25/16 12/26/16 08:00 16:00 00:00 Intake Total 1205 ml 863 ml 1263 ml Output Total 50 ml 150 ml 125 ml Balance 1155 ml 713 ml 1138 ml Result Diagram: 12/26/16 0429 12/26/16 0429 Other Results Microbiology Date/Time Procedure Status Source Growth 12/24/16 00:30 Legionella Antigen - Final Complete Urine Catheterized Urine PRESUMPTIVE NEGATIVE FOR LEGIONELLA P... 4/22/17 00:30 Streptococcus pneumoniae Antigen (M - Final Complete Urine Catheterized Urine PRESUMPTIVE NEGATIVE FOR STREPTOCOCCU... Imaging Last Impressions Chest X-Ray 12/26/16 06 Signed Impressions: Service Date/Time: Monday, December 26, 2016 03:36 - CONCLUSION: Mild increase in the right lower lung infiltrate. Joshua Ordoñez MD Last 24 hours Impressions Chest X-Ray 12/25/16 06 Signed Impressions: Service Date/Time: Sunday, December 25, 2016 05:35 - CONCLUSION: Some worsening of the consolidation in the right lower lobe. Ramsey Sinclair Jr., MD Last 24 hours Impressions Chest X-Ray 12/24/16 0030 Signed Impressions: Service Date/Time: Saturday, December 24, 2016 01:44 - CONCLUSION: 1. Endotracheal tube in good position. 2. Right lower lobe infiltrate. Ramsey Sinclair Jr., MD Objective Remarks GENERAL: Well-nourished, well-developed patient. Awake alert on BiPAP SKIN: Warm and dry. HEAD: Normocephalic. EYES: No scleral icterus. No injection or drainage. NECK: Supple, trachea midline. No JVD or lymphadenopathy. CARDIOVASCULAR: Regular rate and rhythm without murmurs, gallops, or rubs. RESPIRATORY: On BiPAP, Breath sounds equal bilaterally. Scattered rhonchi, no wheezing GASTROINTESTINAL: Abdomen soft, non-tender, nondistended. EXTREMITIES: No clubbing cyanosis and edema Neuro: Awake and alert off sedation, following commands, moving all 4 extremities. A/P Assessment and Plan Respiratory failure - COPD exacerbation - Pneumonia-right lower lobe - BiPAP, IPAP 9 EPAP 5, rate 30 FiO2 0.35 COPD exacerbation - Broad-spectrum antibiotic-chest x-ray worsening infiltrate ID consulted - IV steroid - DuoNeb scheduled and when necessary -Continue home bronchodilator Stiolto-Respimate a day (home med) Community-acquired pneumonia -Currently on Broad-spectrum antibiotic - 12/24 blood cultures negative growth today -12/24 Strep pneumococcal, and Legionella Urine antigens-negative -Chest x-ray 12/26 infiltrate right lower lobe increased A. fib with RVR -Given 2.5 metoprolol IV 1 dose. Cardizem dosing 25 mg initial dose, and repeated -4/24 placed on Cardizem infusion -Obtain echocardiogram CAT - IV hydration -strict intake output -monitor and replete electrolytes -Monitor BUN/creatinine. -Decrease bicarbonate infusion from 11 to 75cc/hr. Follow potassium level. Diabetes mellitus -Sliding-scale insulin for glycemic control -Low dose regimen Gout -Continue allopurinol home med Anxiety disorder -Resume home meds Zoloft DVT GI prophylaxis - Lovenox Pepcid Critical Care: This patient remains critically ill with one or more organ systems which are or may become a threat to life. I have spent in excess of 55 minutes discontinuously in the care and management of this patient. This time is exclusive of procedures, and includes, but is not limited to, evaluation of the patient, review of the medical record, discussions with family, consultants, nursing staff, or respiratory therapy, and documentation in the medical record. Physician Lavern Montgomery MD Dec 26, 2016 14:17
[2016-12-26] MEDS ORDERED: FUROSEMIDE 40 MG/4 ML VIAL ONE (15:22)
[2016-12-26] MEDS ORDERED: FUROSEMIDE 20 MG/2 ML VIAL IV PUSH ONE (15:22)
--- NOTE | 2016-12-26 21:03 | EC ---
Study Study Date:12/26/2016 STUDY CONCLUSIONS SUMMARY - Left ventricle: The cavity size was mildly dilated. Wall thickness was normal. Systolic function was moderately to severely reduced. The estimated ejection fraction was in the range of 25% to 30%. Wall motion was normal; there were no regional wall motion abnormalities. - Mitral valve: Calcified annulus. - Tricuspid valve: Mild regurgitation. - Pulmonary arteries: Systolic pressure was mildly to moderately increased. PA peak pressure: 52mm Hg (S). If LV function is below 40, please consider prescribing an ACEI or ARB or document rationale for non-use. PROCEDURE DATA STUDY STATUS: Elective. Procedure: Transthoracic echocardiography. Image quality was good. Scanning was performed from the parasternal, apical, and subcostal acoustic windows. Study completion: The patient tolerated the procedure well. Transthoracic echocardiography. M-mode, complete 2D, complete spectral Doppler, and color Doppler. Height: Height: 64in. Weight: Weight: 192.6lb. Body mass index: BMI: 33.1kg/m^2. Body surface area: BSA: 1.93m^2. Patient status: Inpatient. CARDIAC ANATOMY LEFT VENTRICLE: The cavity size was mildly dilated. Wall thickness was normal. Systolic function was moderately to severely reduced. The estimated ejection fraction was in the range of 25% to 30%. Wall motion was normal; there were no regional wall motion abnormalities. AORTIC VALVE: Trileaflet; mildly thickened leaflets. Doppler: Transvalvular velocity was within the normal range. There was no stenosis. No regurgitation. Valve area: 1.25cm^2(VTI). Indexed valve area: 0.65cm^2/m^2 (VTI). Valve area: 1.03cm^2 (Vmax). Indexed valve area: 0.53cm^2/m^2 (Vmax). Mean gradient: 2mm Hg (S). AORTA: Aortic root: The aortic root was normal in size. MITRAL VALVE: Calcified annulus. Doppler: Transvalvular velocity was within the normal range. There was no evidence for stenosis. Trace regurgitation. Peak gradient: 5mm Hg (D). LEFT ATRIUM: The atrium was normal in size. RIGHT VENTRICLE: The cavity size was normal. Wall thickness was normal. PULMONIC VALVE: Doppler: Transvalvular velocity was within the normal range. There was no evidence for stenosis. No regurgitation. TRICUSPID VALVE: Structurally normal valve. Doppler: Transvalvular velocity was within the normal range. Mild regurgitation. PULMONARY ARTERY: The main pulmonary artery was normal-sized. Systolic pressure was mildly to moderately increased. RIGHT ATRIUM: The atrium was normal in size. PERICARDIUM: There was no pericardial effusion. SYSTEMIC VEINS: Inferior vena cava: The vessel was normal in size. Patient weight: 192.6lb _Ejection fraction:_ 65-75% _Fractional shortening:_ 32% up to 5Kg 5-11.5Kg 11.6-22.9Kg 23-45Kg 45-57Kg Aortic Root 7-13 <17 13-22 17-27 17-27 LA diam 6-13 <23 24-38 33-47 37-40 RVID 10-17 7-15 7-15 7-18 8-17 LVIDd 12-22 <32 24-38 33-47 37-40 LVPW 2-4 3-6 5-7 6-8 7-8 IVS 2-4 3-6 5-7 6-8 7-8 BASIC MEASUREMENTS ADULT NORMAL Left ventricle LV internal dimension, ED, chordal 44.2 mm 43-52 level, PLAX LV internal dimension, ES, chordal *39.4 mm 23-38 level, PLAX Fractional shortening, chordal level, *11 % >29 PLAX LV posterior wall thickness, ED 7.12 mm IVS/LVPW ratio, ED 0.99 <1.3 Ventricular septum Septal thickness, ED 7.05 mm Aorta Root diameter, ED 23 mm Left atrium Anterior-posterior dimension 30 mm Anterior-posterior dimension index 1.55 cm/m^2 <2.2 DOPPLER MEASUREMENTS ADULT NORMAL Main pulmonary artery Pressure, S *52 mm Hg =30 Aortic valve Peak velocity, S 99.9 cm/s Mean velocity, S 67.9 cm/s VTI, S 11.7 cm Mean gradient, S 2 mm Hg Valve area, VTI 1.25 cm^2 Valve area index, VTI 0.65 cm^2/m^2 Valve area, Vmax 1.03 cm^2 Valve area index, Vmax 0.53 cm^2/m^2 Mitral valve Peak E-wave velocity 116 cm/s Deceleration time *106 ms 150-230 Peak gradient, D 5 mm Hg Tricuspid valve Regurgitant peak velocity 326 cm/s Peak RV-RA gradient, S 43 mm Hg Maximal regurgitant velocity 326 cm/s Systemic veins Estimated CVP 10 mm Hg Right ventricle RV pressure, S *53 mm Hg <30 Pulmonic valve Peak velocity, S 51.9 cm/s LEGEND: Mean values are shown as u=mean value. Asterisk (*) navarro values outside specified normal range. Prepared and signed by Regina Massey [id number]
[2016-12-26] MEDS ORDERED: LORazepam 2 MG/ML VIAL IV PUSH ONE (22:00)
[2016-12-27] VITALS (16 sets, daily range): BP systolic 124–155; BP diastolic 59–87; PULSE 78–94; RESP 24–34; TEMP 97.5–98.2; O2SAT 96–98
[2016-12-27] MEDS: AZITHROMYCIN INJ 500 MG in SODIUM CHLOR 0.9% 250 ML INJ 250 ML IV SCH (00:31)
[2016-12-27] MEDS: CHLORHEXIDINE GLUCONATE 2 % 1 PACK (2 CLOTHS) TOP SCH (03:26)
[2016-12-27] MEDS: HYDROCORTISONE SOD SUCCINATE 100 MG VIAL IV SCH ×4 (03:31→20:09)
[2016-12-27] MEDS: PIPERACIL-TAZO 2.25 GM PREMIX 50 ML IV SCH ×4 (03:32→20:08)
[2016-12-27] MEDS ORDERED: PHARMACY ORDERED LAB ONE (03:45)
[2016-12-27] MEDS: RESP: ALBUTEROL 2.5 MG/IPRATROPIUM 0.5 MG NEB (SCH) INH ×5 (04:00→20:00)
[2016-12-27 04:10] LABS: AUTOMATED NEUTROPHIL # 3.7 TH/MM3 (1.8-7.7); BASOPHIL % 0.1 % (0.0-2.0); HEMATOCRIT 31.4 % (35.0-46.0); LYMPH % 11.1 % (9.0-44.0); LYMPHOCYTE # 0.5 TH/MM3 (1.0-4.8); MEAN CORPUSCULAR HEMOGLOBIN 29.4 PG (27.0-34.0); MONO % 6.2 % (0.0-8.0); NEUT % 82.6 % (16.0-70.0); PLATELET COUNT 80 TH/MM3 (150-450); RED BLOOD COUNT 3.53 MIL/MM3 (4.00-5.30); RED CELL DISTRIBUTION WIDTH 14.6 % (11.6-17.2); WHITE BLOOD COUNT 4.5 TH/MM3 (4.0-11.0)
[2016-12-27 04:14] LABS: HEMO FLAGS AUTO DIFF
[2016-12-27 04:45] LABS: BICARBONATE 27.3 MEQ/L (21.0-32.0); MAGNESIUM 1.6 MG/DL (1.5-2.5); POTASSIUM 3.3 MEQ/L (3.5-5.1)
[2016-12-27 05:03] LABS: CALCIUM-PROTEIN CORRECTED 7.5 MG/DL (8.5-10.1)
[2016-12-27 05:17] LABS: SCAN/DIFF AUTO DIFF CONFIRMED
[2016-12-27] MEDS: INSULIN NovoLIN REGULAR SUPPLEMENTAL SCALE SQ SCH ×6 (05:43→20:25)
[2016-12-27] MEDS: ENOXAPARIN SODIUM 30 MG/0.3 ML SYRINGE SQ SCH (05:43)
[2016-12-27] MEDS: SODIUM BICARBONATE 8.4% INJ 150 MEQ in WATER STERILE FOR INJ 850 ML IV SCH (06:02)
--- NOTE | 2016-12-27 06:04 | RADRPT ---
EXAM DATE/TIME: 12/27/2016 04:36 [facility] COMPARISON: CHEST SINGLE AP, December 26, 2016, 3:36. INDICATIONS : Respiratory distress. MEDICAL HISTORY : Hypertension. Chronic obstructive pulmonary disease. Diabetes mellitus type II. SURGICAL HISTORY : Coronary artery stent. ENCOUNTER: Subsequent ACUITY: 4 - 6 days PAIN SCORE: Non-responsive. LOCATION: Bilateral chest FINDINGS: A single view of the chest demonstrates an improving infiltrate in the right lower lung. The left isaiah g is stable. No new infiltrates are seen. The heart size is stable. There are no pleural effusions or pneumothorax. The bony structures are stable.. CONCLUSION: Slowly improving right lower lung infiltrate. Joshua Ordoñez MD on December 27, 2016 at 6:02 Board Certified Radiologist. This report was verified electronically.
--- NOTE | 2016-12-27 07:18 | MB ---
cc: ALAINA REY MD, FRANKLYN F. MD DATE OF CONSULTATION: 12/26/[address] Rey REASON FOR CONSULTATION Recurrent pneumonia, worsening infiltrate. HISTORY OF PRESENT ILLNESS This is a 71-year-old white female who was admitted to the hospital after presenting to the emergency department via [facility] where the patient was intubated prior to being brought to the emergency department. The patient and the are here in [facility] attending a denominational conference from [place]. The patient has a history of COPD. She developed sudden shortness of breath and did not improve using a rescue inhaler and EMS was called and she was brought to the emergency department for evaluation. The patient was noted to have audible wheezing and was tachypneic. She also had elevated heart rate and elevated white blood cell count. She was noted to have kidney disease and she was hypotensive. She has been treated and has been extubated and is currently on BiPAP. The patient received intravenous antibiotic for right lower lobe infiltrate which was noted on admission. Repeat chest x-ray today shows mild increase in right lower lobe infiltrate. The patient's notes that she has been coughing but only brings up grayish sputum. He notes that she was having an episode of bronchitis about a week before they left to come to [place] for their convention. Blood cultures from 12/24/2016 have no growth. Urine Legionella antigen is negative. The patient tells me that her breathing feels better. Blood pressure is currently stable. PAST MEDICAL HISTORY 1. COPD. 2. Bronchitis. 3. Bladder surgery. 4. Vaginal hysterectomy. 5. Gallbladder surgery. 6. Crohn's disease. 7. Gastroparesis. 8. Coronary stent. 9. Right cataract surgery. 10.Tonsillectomy. 11.Hemorrhoidectomy. ALLERGIES 1. REMICADE. 2. LATEX. MEDICATIONS 1. Tenormin. 2. Zoloft. 3. Allopurinol. 4. Levemir. 5. Azithromycin. 6. Piperacillin/tazobactam. 7. Pepcid. 8. Hydrocortisone. SOCIAL HISTORY The patient is . She smokes a pack of cigarettes a day. No alcohol or illicit drugs. FAMILY HISTORY Noncontributory. REVIEW OF SYSTEMS Difficult to obtain since the patient is on a BiPAP mask. PHYSICAL EXAMINATION GENERAL: This is a moderately obese female in no acute distress. She has a BiPAP mask in place. VITAL SIGNS: Temperature 98.1, BP 125/56, heart rate 111. HEENT: Head is atraumatic. Extraocular movements grossly intact. Pupils reactive to light. No icterus. Oropharynx has moist mucosa. NECK: Supple without adenopathy. LUNGS: The lungs have rhonchi at the bases and diminished breath sounds. HEART: Regular S1 and S2 without audible murmurs, rubs or gallops. ABDOMEN: Bowel sounds present. Obese, soft, nontender. RECTAL: Not performed. EXTREMITIES: No clubbing, cyanosis or edema. NEUROLOGIC: Nonfocal. SKIN: No rash. PSYCHIATRIC: The patient is calm and cooperative. LABORATORY WBC 4.2, platelets 89, hemoglobin 10.5, 78% neutrophils. Creatinine 2.17, BUN 49, sodium 140, AST 40, ALT 24. IMPRESSION 1. Right lower lobe pneumonia. 2. Septic shock on admission. 3. Acute kidney disease. 4. Thrombocytopenia. RECOMMENDATIONS 1. Discontinue vancomycin. 2. Continue piperacillin/tazobactam. 3. Continue azithromycin for atypical bacterial coverage. 4. Monitor clinical response. Thank you for this consultation. I will follow the patient's progress along with you and make further recommendations on follow-up if necessary. Thanh Epps MD FD/DAVID /6:08 PM /7:07 AM
[2016-12-27] MEDS: OLODATEROL INH SCH (08:18)
[2016-12-27] MEDS: TIOTROPIUM INH SCH (08:18)
[2016-12-27] MEDS: [UNRECOGNIZED DRUG - OTHER] INH SCH (08:18)
[2016-12-27] MEDS: JUVEN POWDER 1 PACK G-TUBE SCH ×3 (08:18→20:27)
[2016-12-27] MEDS: SERTRALINE HCL 50 MG TAB PO SCH (08:19)
[2016-12-27] MEDS: CHOLECALCIFEROL (VIT D3) 1000 UNIT TAB PO SCH (08:19)
[2016-12-27] MEDS: OFLOXACIN 0.3% OPTH SOLN 5 ML BTL RIGHT EYE SCH ×4 (08:19→21:00)
[2016-12-27] MEDS: FAMOTIDINE 20 MG/2 ML VIAL IV PUSH SCH ×2 (08:19→20:10)
[2016-12-27] MEDS: ATENOLOL 25 MG TAB PO SCH (08:19)
[2016-12-27] MEDS: ALLOPURINOL 100 MG TAB PO SCH (08:19)
[2016-12-27] MEDS: INSULIN DETEMIR 100 UNITS/ML VIAL SQ SCH ×2 (08:20→20:11)
[2016-12-27] MEDS ORDERED: NON-FORMULARY DRUG (Tiotropium-Olodaterol Inh (Stiolto Respimat Inh) 2 PUFF) INH SCH (09:00)
[2016-12-27] MEDS ORDERED: MIDAZOLAM HCL 2 MG/2 ML VIAL IV PUSH ONE (11:00)
[2016-12-27] MEDS: FUROSEMIDE 40 MG TAB PO SCH (11:10)
--- NOTE | 2016-12-27 11:36 | HHI.CCPN ---
Subjective Remarks/Hospital Course 12/24: 71-year-old female presents via EMS for respiratory distress and respiratory failure. The patient was recently diagnosed with bronchitis and has been dealing with shortness of breath and chest congestion. The patient used her inhaler several times earlier today without any alleviation of her symptoms and EMS was subsequently called. Per medical record when EMS arrived the patient was short of breath, had audible wheezing, with a respiratory rate of 30, they then stated she had increased work of breathing and her GCS dropped to 9 with significant increase in respiratory rate and work of breathing. Therefore, EMS initially tried to place the patient on BiPAP, but subsequent intubated the patient in the field. 12/25: Awakens easily off sedation and following commands this morning. Remains orally intubated on mechanical ventilation. Initiated C Pap trials. Borderline urine output overnight. Tolerating tube feeds. 12/26: Tmax 98.1. Early this a.m. the patient had 3 episodes acute onset dyspnea. Patient was placed on BiPAP. With resolutions of symptoms on an FiO2 of 0.35%. Early this afternoon the patient was noted to have new onset atrial fibrillation. The patient received metoprolol 2.5 mg without resolution. The patient was subsequently bolused with Cardizem and placed on a Cardizem infusion. The patient's previous home meds were noted to be atenolol which has not been initiated since admission to hospital will resume in a.m.. Noted chest x-ray infiltrate worsening, infectious disease consulted, appreciate recommendations. The patient continues on empiric antibiotics currently. 12/27: The patient converted to normal sinus rhythm approximately at 4 PM yesterday. He continues on a Cardizem infusion at this time we transitioning to PO Cardizem 30 mg every 6 hours started this a.m.. Plan to discontinue IV Cardizem this evening. The patient's Zoloft was started this morning the patient continued to complain of anxiety and became tachypnea 1 mg of Versed IV was given the patient states she feels more comfortable at this time. The patient has a history of chronic pain syndrome Percocet 5/325 when necessary was initiated. The patient has a history of Crohn's disease and hold discharge mean powder was resumed. Sodium bicarbonate infusion was discontinued yesterday and the patient currently is on 40 mg daily of Lasix. Plan to monitor blood pressure and possibly increase her Lasix to twice a day, home medication regimen. Objective Vital Signs Date Time Temp Pulse Resp B/P Pulse Ox O2 Delivery O2 Flow Rate FiO2 12/27/16 10:54 97 Nasal Cannula 3.00 12/27/16 10:00 80 12/27/16 08:00 97.5 29 145/67 12/26/16 17:00 35 Intake and Output 12/26/16 12/26/16 12/27/16 08:00 16:00 00:00 Intake Total 895 ml 925 ml 825 ml Output Total 300 ml 250 ml 550 ml Balance 595 ml 675 ml 275 ml Result Diagram: 12/27/16 0340 12/27/16 0340 Imaging Last Impressions Chest X-Ray 12/26/16599 Signed Impressions: Service Date/Time: Monday, December 26, 2016 03:36 - CONCLUSION: Mild increase in the right lower lung infiltrate. Joshua Ordoñez MD Last 24 hours Impressions Chest X-Ray 12/25/16 06 Signed Impressions: Service Date/Time: Sunday, December 25, 2016 05:35 - CONCLUSION: Some worsening of the consolidation in the right lower lobe. Ramsey Sinclair Jr., MD Last 24 hours Impressions Chest X-Ray 12/24/16 0030 Signed Impressions: Service Date/Time: Saturday, December 24, 2016 01:44 - CONCLUSION: 1. Endotracheal tube in good position. 2. Right lower lobe infiltrate. Ramsey Sinclair Jr., MD Objective Remarks GENERAL: Well-nourished, well-developed patient. Breathing comfortably on 3 L nasal cannula SKIN: Warm and dry. HEAD: Normocephalic. EYES: No scleral icterus. No injection or drainage. NECK: Supple, trachea midline. No JVD or lymphadenopathy. CARDIOVASCULAR: Regular rate and rhythm without murmurs, gallops, or rubs. Telemetry normal sinus rhythm RESPIRATORY: On BiPAP, Breath sounds equal bilaterally. Mild expiratory wheeze noted GASTROINTESTINAL: Abdomen soft, non-tender, nondistended. EXTREMITIES: No clubbing cyanosis and edema Neuro: Awake and alert off sedation, following commands, moving all 4 extremities. Urinary Catheter: Yes Gordon insert reason: ICU Pt Getting Diuretics A/P Assessment and Plan Respiratory failure - COPD exacerbation - Pneumonia-right lower lobe - Currently nasal cannula 3 L/m COPD exacerbation - Continue Vancocomycin, Zosyn and azithromycin per ID recommendations-Dr. Epps following - IV steroid, hydrocortisone 50 mg every 6 hours - DuoNeb scheduled and when necessary -Continue home bronchodilator Stiolto-Respimate a day (home med) Community-acquired pneumonia -Currently on Broad-spectrum antibiotic - 12/24 blood cultures negative growth today -12/24 Strep pneumococcal, and Legionella Urine antigens-negative -Chest x-ray 12/27-improving right lower lung infiltrate A. fib with RVR-resolved -Given 2.5 metoprolol IV 1 dose. Cardizem dosing 25 mg initial dose, and repeated -12/27 Begin Cardizem 30 mg every 6 hours ,discontinue Cardizem infusion this afternoon -12/26 Echocardiogram-ejection fraction 2530 percent. No RWMA. Mild tricuspid regurgitation. PASP elevated 52 mmHg CAT - IV hydration -strict intake output -monitor and replete electrolytes -Monitor BUN/creatinine. -Sodium bicarbonate infusion discontinued 12/26 Diabetes mellitus -Sliding-scale insulin for glycemic control -Low dose regimen Gout -Continue allopurinol home med Anxiety disorder -Resume home meds Zoloft 50 mg/day Chronic pain -Home meds Percocet 5/325 every 12 hour when necessary initiated DVT and GI prophylaxis - Lovenox Pepcid Dispo: Discussed with ,patient, and STORAGE CONSULTANT at bedside. Level 3 Physician Lavern Montgomery MD Dec 27, 2016 11:36
[2016-12-27] MEDS: CHOLESTYRAMINE PO SCH ×2 (12:00→21:00)
[2016-12-27] MEDS: DILTIAZEM HCL 30 MG TAB PO SCH ×2 (12:50→17:52)
--- NOTE | 2016-12-27 12:59 | EKG ---
Date Performed: 12/26/2016 Time Performed: 12:31:42 PTAGE: 71 years EKG: Atrial fibrillation with uncontrolled ventricular response. Rightward axis Inferior/lateral ST-T changes may be due to myocardial ischemia Abnormal ECG PREVIOUS TRACING : 12/24/2016 00.31 Compared to previous tracing, atrial fibrillation has repla [place] possible sinus tachycardia, right bundle branch block pattern is no longer evident. DOCTOR: Gabriele Henry Interpretating Date/Time 12/27/2016 12:58:54
[2016-12-27] MEDS ORDERED: VANCOMYCIN INJ 1,250 MG in SODIUM CHLOR 0.9% 250 ML INJ 250 ML IV ONE (13:00)
[2016-12-27] MEDS: ACETAMINOPHEN/HYDROcodone 325 MG/5 MG TAB PO PRN (13:17)
[2016-12-27 17:30] LABS: POTASSIUM 3.4 MEQ/L (3.5-5.1)
[2016-12-27] MEDS: DILTIAZEM INJ 125 MG in SODIUM CHLORIDE 0.9% INJ 100 ML IV SCH (17:51)
[2016-12-28] VITALS (13 sets, daily range): BP systolic 113–153; BP diastolic 57–67; PULSE 71–85; RESP 15–25; TEMP 97.8–98.2; O2SAT 97–100
[2016-12-28] MEDS: RESP: ALBUTEROL 2.5 MG/IPRATROPIUM 0.5 MG NEB (SCH) INH
[2016-12-28] MEDS: ACETAMINOPHEN/HYDROcodone 325 MG/5 MG TAB PO PRN ×2 (00:07→12:24)
[2016-12-28] MEDS: DILTIAZEM HCL 30 MG TAB PO SCH ×4 (00:07→18:00)
[2016-12-28] MEDS: AZITHROMYCIN INJ 500 MG in SODIUM CHLOR 0.9% 250 ML INJ 250 ML IV SCH (00:07)
[2016-12-28] MEDS: INSULIN NovoLIN REGULAR SUPPLEMENTAL SCALE SQ SCH ×5 (04:00→20:00)
[2016-12-28] MEDS: CHLORHEXIDINE GLUCONATE 2 % 1 PACK (2 CLOTHS) TOP SCH (04:00)
[2016-12-28 04:23] LABS: HEMATOCRIT 32.2 % (35.0-46.0); MEAN CELL VOLUME 88.8 FL (80.0-100.0); MEAN CORPUSCULAR HEMOGLOBIN 30.2 PG (27.0-34.0); PLATELET COUNT 104 TH/MM3 (150-450); RED BLOOD COUNT 3.63 MIL/MM3 (4.00-5.30); RED CELL DISTRIBUTION WIDTH 14.4 % (11.6-17.2); REVIEW FLAG FINAL; WHITE BLOOD COUNT 6.1 TH/MM3 (4.0-11.0)
[2016-12-28] MEDS: HYDROCORTISONE SOD SUCCINATE 100 MG VIAL IV SCH ×4 (04:37→20:46)
[2016-12-28] MEDS: PIPERACIL-TAZO 2.25 GM PREMIX 50 ML IV SCH ×4 (04:37→20:47)
[2016-12-28 05:03] LABS: MAGNESIUM 1.7 MG/DL (1.5-2.5); POTASSIUM 3.3 MEQ/L (3.5-5.1)
[2016-12-28 05:20] LABS: CALCIUM-PROTEIN CORRECTED 7.6 MG/DL (8.5-10.1)
[2016-12-28] MEDS ORDERED: PHARMACY ORDERED LAB ONE (06:00)
[2016-12-28] MEDS: ENOXAPARIN SODIUM 30 MG/0.3 ML SYRINGE SQ SCH (06:00)
[2016-12-28] MEDS: ATENOLOL 25 MG TAB PO SCH (09:08)
[2016-12-28] MEDS: CHOLECALCIFEROL (VIT D3) 1000 UNIT TAB PO SCH (09:08)
[2016-12-28] MEDS: INSULIN DETEMIR 100 UNITS/ML VIAL SQ SCH ×2 (09:09→20:48)
[2016-12-28] MEDS: ALLOPURINOL 100 MG TAB PO SCH (09:26)
[2016-12-28] MEDS: OFLOXACIN 0.3% OPTH SOLN 5 ML BTL RIGHT EYE SCH ×4 (09:27→20:48)
[2016-12-28] MEDS: SERTRALINE HCL 50 MG TAB PO SCH (09:30)
[2016-12-28] MEDS: FUROSEMIDE 40 MG TAB PO SCH ×2 (09:30→18:00)
[2016-12-28] MEDS: JUVEN POWDER 1 PACK G-TUBE SCH ×2 (09:30→20:48)
[2016-12-28] MEDS: [UNRECOGNIZED DRUG - OTHER] INH SCH (09:31)
[2016-12-28] MEDS: FAMOTIDINE 20 MG/2 ML VIAL IV PUSH SCH ×2 (09:31→20:47)
[2016-12-28] MEDS: OLODATEROL INH SCH (09:31)
[2016-12-28] MEDS: TIOTROPIUM INH SCH (09:31)
[2016-12-28] MEDS: CHOLESTYRAMINE PO SCH ×2 (09:31→20:47)
--- NOTE | 2016-12-28 11:22 | HHI.IDPN ---
Note Infectious Disease Note Patient on O2 via NC. appears dyspneic when talking. Feels weak. Coughing up yellow sputum. Afebrile. Notes ache at abdomen diffusely. Admitted with sudden shortness of breath Blood cultures from 12/24/2016 have no growth. Urine Legionella antigen is negative. The patient tells me that her breathing feels better. Blood pressure is currently stable. PAST MEDICAL HISTORY 1. COPD. 2. Bronchitis. 3. Bladder surgery. 4. Vaginal hysterectomy. 5. Gallbladder surgery. 6. Crohn's disease. 7. Gastroparesis. 8. Coronary stent. 9. Right cataract surgery. 10.Tonsillectomy. 11.Hemorrhoidectomy. ALLERGIES 1. REMICADE. 2. LATEX. MEDICATIONS VAncomycin. Azithromycin. Piperacillin/tazobactam. SOCIAL HISTORY The patient is . She smokes a pack of cigarettes a day. No alcohol or illicit drugs. FAMILY HISTORY Noncontributory. OBJECTIVE: Vital Signs Date Time Temp Pulse Resp B/P Pulse Ox O2 Delivery O2 Flow Rate FiO2 12/28/16 09:11 97 Nasal Cannula 4.00 12/28/16 06:00 80 12/28/16 04:00 98.0 80 15 117/57 97 12/28/16 04:00 80 12/28/16 02:00 71 12/28/16 00:00 85 12/28/16 00:00 97.9 82 15 153/67 97 12/27/16 23:00 98 35 12/27/16 22:00 88 12/27/16 20:35 98 Nasal Cannula 4.00 12/27/16 20:00 78 12/27/16 20:00 98 Nasal Cannula 3.00 35 12/27/16 20:00 97.8 78 24 124/87 98 12/27/16 18:00 87 12/27/16 16:00 97.8 82 29 143/80 96 12/27/16 16:00 82 12/27/16 14:00 80 12/27/16 12:20 98 35 12/27/16 12:00 97.5 83 34 155/71 96 12/27/16 12:00 83 12/27/16 12/27/16 12/28/16 15:00 23:00 07:00 Intake Total 372 ml 156 ml 284 ml Output Total 260 ml 250 ml 150 ml Balance 112 ml -94 ml 134 ml IV Total 372 ml 156 ml 284 ml Output Urine Total 260 ml 250 ml 150 ml Stool Total 0 ml 0 ml # Bowel Movements 3 Laboratory Tests Test 12/27/16 12/28/16 03:40 03:31 White Blood Count 4.5 TH/MM3 6.1 TH/MM3 Red Blood Count 3.53 MIL/MM3 3.63 MIL/MM3 Hemoglobin 10.4 GM/DL 11.0 GM/DL Hematocrit 31.4 % 32.2 % Mean Corpuscular Volume 89.0 FL 88.8 FL Mean Corpuscular Hemoglobin 29.4 PG 30.2 PG Mean Corpuscular Hemoglobin 33.0 % 34.0 % Concent Red Cell Distribution Width 14.6 % 14.4 % Platelet Count 80 TH/MM3 104 TH/MM3 Mean Platelet Volume 7.7 FL 7.4 FL Neutrophils (%) (Auto) 82.6 % Lymphocytes (%) (Auto) 11.1 % Monocytes (%) (Auto) 6.2 % Eosinophils (%) (Auto) 0.0 % Basophils (%) (Auto) 0.1 % Neutrophils # (Auto) 3.7 TH/MM3 Lymphocytes # (Auto) 0.5 TH/MM3 Monocytes # (Auto) 0.3 TH/MM3 Eosinophils # (Auto) 0.0 TH/MM3 Basophils # (Auto) 0.0 TH/MM3 CBC Comment AUTO DIFF Differential Comment AUTO DIFF CONFIRMED Laboratory Tests Test 12/27/16 12/27/16 12/28/16 03:40 16:55 03:31 Sodium Level 142 MEQ/L 140 MEQ/L Potassium Level 3.3 MEQ/L 3.4 MEQ/L 3.3 MEQ/L Chloride Level 104 MEQ/L 102 MEQ/L Carbon Dioxide Level 27.3 MEQ/L 30.0 MEQ/L Anion Gap 11 MEQ/L 8 MEQ/L Blood Urea Nitrogen 43 MG/DL 42 MG/DL Creatinine 1.55 MG/DL 1.47 MG/DL Estimat Glomerular Filtration 33 ML/MIN 35 ML/MIN Rate Random Glucose 167 MG/DL 60 MG/DL Calcium Level 6.9 MG/DL 7.0 MG/DL Protein Corrected Calcium 7.5 MG/DL 7.6 MG/DL Phosphorus Level 2.2 MG/DL 2.1 MG/DL 2.8 MG/DL Magnesium Level 1.6 MG/DL 1.7 MG/DL Total Protein 5.9 GM/DL 6.0 GM/DL IMAGING: Chest X-Ray 12/27/16 0600 Signed Impressions: Service Date/Time: Tuesday, December 27, 2016 04:36 - CONCLUSION: Slowly improving right lower lung infiltrate. Joshua Ordoñez MD PHYSICAL EXAMINATION GENERAL: No acute distress. Appears dyspneic when talking. HEENT: Head is atraumatic. Extraocular movements grossly intact. Pupils reactive to light. No icterus. Oropharynx has moist mucosa. NECK: Supple without adenopathy. LUNGS: Slight rhonchi, diminished breath sounds, clearer. HEART: Regular S1 and S2 without audible murmurs, rubs or gallops. ABDOMEN: Bowel sounds present. Obese, soft, nontender. EXTREMITIES: No clubbing, cyanosis or edema. NEUROLOGIC: Nonfocal. SKIN: No rash. PSYCHIATRIC: The patient is calm and cooperative. IMPRESSION 1. Right lower lobe pneumonia. Appears to be improving. 2. Septic shock on admission. Improved. 3. Acute kidney disease. 4. Thrombocytopenia. PLT higher. RECOMMENDATIONS 1. Continue piperacillin/tazobactam. 2. Continue azithromycin for atypical bacterial coverage. 3. Monitor clinical response. Thanh Epps MD Dec 28, 2016 11:22
[2016-12-28] MEDS ORDERED: ONDANSETRON HCL 4 MG/2 ML VIAL ONE (11:57)
[2016-12-28] MEDS ORDERED: ONDANSETRON HCL 4 MG/2 ML VIAL IV PUSH PRN (12:00)
--- NOTE | 2016-12-28 13:16 | HHI.CCPN ---
Subjective Remarks/Hospital Course 12/24: 71-year-old female presents via EMS for respiratory distress and respiratory failure. The patient was recently diagnosed with bronchitis and has been dealing with shortness of breath and chest congestion. The patient used her inhaler several times earlier today without any alleviation of her symptoms and EMS was subsequently called. Per medical record when EMS arrived the patient was short of breath, had audible wheezing, with a respiratory rate of 30, they then stated she had increased work of breathing and her GCS dropped to 9 with significant increase in respiratory rate and work of breathing. Therefore, EMS initially tried to place the patient on BiPAP, but subsequent intubated the patient in the field. 12/25: Awakens easily off sedation and following commands this morning. Remains orally intubated on mechanical ventilation. Initiated C Pap trials. Borderline urine output overnight. Tolerating tube feeds. 12/26: Tmax 98.1. Early this a.m. the patient had 3 episodes acute onset dyspnea. Patient was placed on BiPAP. With resolutions of symptoms on an FiO2 of 0.35%. Early this afternoon the patient was noted to have new onset atrial fibrillation. The patient received metoprolol 2.5 mg without resolution. The patient was subsequently bolused with Cardizem and placed on a Cardizem infusion. The patient's previous home meds were noted to be atenolol which has not been initiated since admission to hospital will resume in a.m.. Noted chest x-ray infiltrate worsening, infectious disease consulted, appreciate recommendations. The patient continues on empiric antibiotics currently. 12/27: The patient converted to normal sinus rhythm approximately at 4 PM yesterday. He continues on a Cardizem infusion at this time we transitioning to PO Cardizem 30 mg every 6 hours started this a.m.. Plan to discontinue IV Cardizem this evening. The patient's Zoloft was started this morning the patient continued to complain of anxiety and became tachypnea 1 mg of Versed IV was given the patient states she feels more comfortable at this time. The patient has a history of chronic pain syndrome Percocet 5/325 when necessary was initiated. The patient has a history of Crohn's disease and hold discharge mean powder was resumed. Sodium bicarbonate infusion was discontinued yesterday and the patient currently is on 40 mg daily of Lasix. Plan to monitor blood pressure and possibly increase her Lasix to twice a day, home medication regimen. 12/28. Afebrile. The patient up out of bed to chair today,working with PT to ambulate in the room. The patient remained in normal sinus rhythm for the last 24 hours. Cardizem infusion was discontinued yesterday. Echo revealed the patient has ejection fraction of 25-30%, with noted pulmonary hypertension with a PASP of 52. Patient's home dose of Lasix is 40 mg twice a day, will increase to twice a day. The patient started starting to tolerate PO diet. Objective Vital Signs Date Time Temp Pulse Resp B/P Pulse Ox O2 Delivery O2 Flow Rate FiO2 12/28/16 09:11 97 Nasal Cannula 4.00 12/28/16 06:00 80 12/28/16 04:00 98.0 15 117/57 12/27/16 23:00 35 Intake and Output 12/27/16 12/27/16 12/28/16 08:00 16:00 00:00 Intake Total 662 ml 372 ml 156 ml Output Total 250 ml 260 ml 250 ml Balance 412 ml 112 ml -94 ml Result Diagram: 12/28/16 0331 12/28/16 0331 Imaging Last Impressions Chest X-Ray 12/26/16 06 Signed Impressions: Service Date/Time: Monday, December 26, 2016 03:36 - CONCLUSION: Mild increase in the right lower lung infiltrate. Joshua Ordoñez MD Last 24 hours Impressions Chest X-Ray 12/25/16 0600 Signed Impressions: Service Date/Time: Sunday, December 25, 2016 05:35 - CONCLUSION: Some worsening of the consolidation in the right lower lobe. Ramsey Sinclair Jr., MD Last 24 hours Impressions Chest X-Ray 12/24/16 0030 Signed Impressions: Service Date/Time: Saturday, December 24, 2016 01:44 - CONCLUSION: 1. Endotracheal tube in good position. 2. Right lower lobe infiltrate. Ramsey Sinclair Jr., MD Objective Remarks GENERAL: Well-nourished, well-developed patient. Breathing comfortably on 3 L nasal cannula SKIN: Warm and dry. HEAD: Normocephalic. EYES: No scleral icterus. No injection or drainage. NECK: Supple, trachea midline. No JVD or lymphadenopathy. CARDIOVASCULAR: Regular rate and rhythm without murmurs, gallops, or rubs. Telemetry normal sinus rhythm RESPIRATORY: On BiPAP, Breath sounds equal bilaterally. Mild expiratory wheeze noted GASTROINTESTINAL: Abdomen soft, non-tender, nondistended. EXTREMITIES: No clubbing cyanosis and edema Neuro: Awake and alert off sedation, following commands, moving all 4 extremities. Urinary Catheter: Yes Gordon insert reason: ICU Pt Getting Diuretics A/P Assessment and Plan Respiratory failure - COPD exacerbation - Pneumonia-right lower lobe - Currently nasal cannula 3 L/m COPD exacerbation - Continue Vancomycin, Zosyn and azithromycin per ID recommendations-Dr. Epps following - IV steroid, hydrocortisone 50 mg every 6 hours - DuoNeb scheduled and when necessary -Continue home bronchodilator Stiolto-Respimate a day (home med) Community-acquired pneumonia -Currently on Broad-spectrum antibiotic - 12/24 blood cultures negative growth today -12/24 Strep pneumococcal, and Legionella Urine antigens-negative -Chest x-ray 12/27-improving right lower lung infiltrate A. fib with RVR-resolved Cardiomegaly Cardiomyopathy Pulmonary hypertension -Given 2.5 metoprolol IV 1 dose. Cardizem dosing 25 mg initial dose, and repeated -12/27 Begin Cardizem 30 mg every 6 hours ,discontinue Cardizem infusion this afternoon -12/26 Echocardiogram-ejection fraction 2530 percent. No RWMA. Mild tricuspid regurgitation. PASP elevated 52 mmHg -Will increase Lasix 40 mg twice a day, home medication CAT - IV hydration -strict intake output -monitor and replete electrolytes -Monitor BUN/creatinine. -Sodium bicarbonate infusion discontinued 12/26 Diabetes mellitus -Sliding-scale insulin for glycemic control -Low dose regimen Gout -Continue allopurinol home med Anxiety disorder -Resume home meds Zoloft 50 mg/day Chronic pain -Home meds Percocet 5/325 every 12 hour when necessary initiated DVT and GI prophylaxis - Lovenox Pepcid Dispo: Plan for transfer to [facility] .Discussed with ,patient, and INVESTMENT BANKING ANALYST at bedside. Level 3 Physician Lavern Montgomery MD Dec 28, 2016 13:16
--- NOTE | 2016-12-28 17:23 | PQ ---
Physician Query Response Document PATIENT: CRIS LOVE : 1945 ADMIT DATE: 12/24/2016 2:23 AM DISCH DATE: RESPONDING PROVIDER #: [email or web address] QUERY TEXT: Sepsis Query Based on your medical judgement, can you further clarify the folowiin. Sepsis (SIRS due to an infection) 2. Sepsis with Organ Dysfunction 3. A localized Infection only 4. Another condition - please specify 5. Unable to determine - please explain. Depending on your selection above, please indicate one of the below if applicable: - Sepsis was present on Admission - Sepsis developed after admission The patient's Clinical Indicators include: On admission LACTIC ACID 2.9 WBC 19.9 AND 2.2, T 99 HR 121 BP 95/65 urine and blood cultures NO growth Respiratory failure intubated on in the field - COPD exacerbation - Bilateral pneumonia After blood cultures and lactic acid were sent to lab, patient was administered cefepime and Zithroma x, rectal temperature was 99. . The patient was administered 3 L of IV fluids, her blood pressure r emained with a systolic in the 80s and diastolic in the 50s, if this persists after 3 L of fluid, pat ient will need Levophed blood pressure is low despite 3L of IV fluids Query created by: Monika Barrientos on 12/26/2016 3:49 PM RESPONSE TEXT: Sepsis upon admission with organ dysfunction -Pulmonary- Pneumonia Electronically signed by: Lavern Rey MD 12/28/2016 5:19 PM
[2016-12-29] VITALS (15 sets, daily range): BP systolic 102–147; BP diastolic 60–73; PULSE 66–85; RESP 15–25; TEMP 97.3–98.2; O2SAT 95–100
[2016-12-29] MEDS: AZITHROMYCIN INJ 500 MG in SODIUM CHLOR 0.9% 250 ML INJ 250 ML IV SCH (00:20)
[2016-12-29] MEDS: DILTIAZEM HCL 30 MG TAB PO SCH ×5 (00:20→23:33)
[2016-12-29] MEDS: ACETAMINOPHEN/HYDROcodone 325 MG/5 MG TAB PO PRN ×4 (00:20→18:57)
[2016-12-29] MEDS: INSULIN NovoLIN REGULAR SUPPLEMENTAL SCALE SQ SCH ×6 (04:00→21:00)
[2016-12-29 04:24] LABS: AUTOMATED NEUTROPHIL # 5.3 TH/MM3 (1.8-7.7); BASOPHIL % 0.2 % (0.0-2.0); EOSINOPHIL % 0.1 % (0.0-4.0); HEMATOCRIT 32.8 % (35.0-46.0); LYMPH % 9.9 % (9.0-44.0); LYMPHOCYTE # 0.6 TH/MM3 (1.0-4.8); MEAN CELL VOLUME 89.1 FL (80.0-100.0); MEAN CORPUSCULAR HGB CONC 33.7 % (32.0-36.0); MONO % 4.8 % (0.0-8.0); PLATELET COUNT 96 TH/MM3 (150-450); RED BLOOD COUNT 3.69 MIL/MM3 (4.00-5.30); RED CELL DISTRIBUTION WIDTH 14.3 % (11.6-17.2); WHITE BLOOD COUNT 6.3 TH/MM3 (4.0-11.0)
[2016-12-29 04:32] LABS: HEMO FLAGS AUTO DIFF
[2016-12-29 04:54] LABS: MAGNESIUM 1.9 MG/DL (1.5-2.5); POTASSIUM 3.8 MEQ/L (3.5-5.1)
[2016-12-29 05:15] LABS: PLATELET ESTIMATE SMEAR LOW (NORMAL); PLATELET MORPHOLOGY NORMAL (NORMAL); SCAN/DIFF AUTO DIFF CONFIRMED
[2016-12-29 05:17] LABS: CALCIUM-PROTEIN CORRECTED 7.9 MG/DL (8.5-10.1)
[2016-12-29] MEDS: HYDROCORTISONE SOD SUCCINATE 100 MG VIAL IV SCH ×3 (05:38→21:31)
[2016-12-29] MEDS: PIPERACIL-TAZO 2.25 GM PREMIX 50 ML IV SCH ×2 (05:38→09:25)
[2016-12-29] MEDS: CHLORHEXIDINE GLUCONATE 2 % 1 PACK (2 CLOTHS) TOP SCH (05:39)
[2016-12-29] MEDS: ENOXAPARIN SODIUM 30 MG/0.3 ML SYRINGE SQ SCH (06:00)
[2016-12-29] MEDS: FAMOTIDINE 20 MG/2 ML VIAL IV PUSH SCH (08:54)
[2016-12-29] MEDS: SERTRALINE HCL 50 MG TAB PO SCH (08:54)
[2016-12-29] MEDS: ALLOPURINOL 100 MG TAB PO SCH (08:55)
[2016-12-29] MEDS: CHOLECALCIFEROL (VIT D3) 1000 UNIT TAB PO SCH (08:55)
[2016-12-29] MEDS: ATENOLOL 25 MG TAB PO SCH (08:56)
[2016-12-29] MEDS: FUROSEMIDE 40 MG TAB PO SCH ×2 (08:56→17:11)
[2016-12-29] MEDS: OFLOXACIN 0.3% OPTH SOLN 5 ML BTL RIGHT EYE SCH ×4 (08:57→21:30)
[2016-12-29] MEDS: INSULIN DETEMIR 100 UNITS/ML VIAL SQ SCH ×2 (08:58→21:30)
[2016-12-29] MEDS: JUVEN POWDER 1 PACK G-TUBE SCH ×2 (09:00→21:00)
[2016-12-29] MEDS: TIOTROPIUM INH SCH (09:20)
[2016-12-29] MEDS: OLODATEROL INH SCH (09:20)
[2016-12-29] MEDS: [UNRECOGNIZED DRUG - OTHER] INH SCH (09:20)
[2016-12-29] MEDS: CHOLESTYRAMINE PO SCH ×2 (09:25→21:00)
[2016-12-29] MEDS ORDERED: BENZOCAINE-MENTHOL (SUGAR FREE) 15 MG-3.6 MG LOZENGE BUCCAL PRN (15:00)
--- NOTE | 2016-12-29 15:17 | HHI.PR ---
Subjective Remarks Follow-up A. fib, respiratory failure and COPD. States she is doing okay on 2 L nasal cannula. Has been out of bed. 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 She wants to go home in [place]. Discussed with RN. Consultation has been requested by critical medicine for transfer care medical management. Chart reviewed Objective Vitals Vital Signs Date Time Temp Pulse Resp B/P Pulse Ox O2 Delivery O2 Flow Rate FiO2 12/29/16 14:00 74 12/29/16 13:00 98.2 76 24 136/73 96 12/29/16 12:00 74 12/29/16 10:00 74 12/29/16 09:03 96 Nasal Cannula 2.00 12/29/16 08:00 74 12/29/16 08:00 97.8 78 25 102/72 95 12/29/16 06:00 74 12/29/16 04:00 70 12/29/16 04:00 97.3 70 15 130/63 99 12/29/16 02:00 66 12/29/16 01:20 18 12/29/16 00:00 98.2 70 17 119/60 100 12/29/16 00:00 70 12/28/16 22:00 75 12/28/16 20:46 98 Nasal Cannula 4.00 12/28/16 20:00 98.1 75 17 117/59 97 12/28/16 20:00 75 12/28/16 19:00 98 Nasal Cannula 1.00 12/28/16 18:00 71 12/28/16 16:00 98.2 71 22 113/57 100 12/28/16 16:00 71 I/O 12/28/16 12/28/16 12/28/16 12/29/16 12/29/16 12/29/16 07:00 15:00 23:00 07:00 15:00 23:00 Intake Total 284 ml 325 ml 355 ml 496 ml Output Total 150 ml 400 ml 200 ml Balance 134 ml 325 ml -45 ml 296 ml Intake Oral 200 ml 240 ml 120 ml IV Total 284 ml 125 ml 115 ml 376 ml Output Urine Total 150 ml 400 ml 200 ml Stool Total 0 ml 0 ml 0 ml Result Diagram: 12/29/16 0352 12/29/16 0352 Imaging Last Impressions Chest X-Ray 12/27/16 0600 Signed Impressions: Service Date/Time: Tuesday, December 27, 2016 04:36 - CONCLUSION: Slowly improving right lower lung infiltrate. Joshua Ordoñez MD Objective Remarks GENERAL: Well-nourished, well-developed patient. Breathing comfortably on 2 L nasal cannula SKIN: Warm and dry. HEAD: Normocephalic. EYES: No scleral icterus. No injection or drainage. NECK: Supple, trachea midline. No JVD or lymphadenopathy. CARDIOVASCULAR: Regular rate and rhythm without murmurs, gallops, or rubs. Telemetry normal sinus rhythm RESPIRATORY: Breath sounds equal bilaterally. GASTROINTESTINAL: Abdomen soft, non-tender, nondistended. EXTREMITIES: No clubbing cyanosis but with trace leg edema Procedures None A/P Problem List: (1) Pneumonia ICD Code: J18.9 Status: Acute (2) Respiratory failure ICD Code: J96.90 Status: Resolved Assessment and Plan Respiratory failure-resolving - COPD exacerbation - Pneumonia-right lower lobe - Currently nasal cannula 3 L/m COPD exacerbation - Improving wean in discontinue hydrocortisone. Switch antibiotic to Augmentin for a total of 14 days. Cultures negative - DuoNeb scheduled and when necessary - Continue home bronchodilator Stiolto-Respimate a day (home med) Community-acquired pneumonia - 12/24 blood cultures negative growth today -12/24 Strep pneumococcal, and Legionella Urine antigens-negative -Chest x-ray 12/27-improving right lower lung infiltrate A. fib with RVR-resolved Cardiomegaly Cardiomyopathy Pulmonary hypertension -Given 2.5 metoprolol IV 1 dose. Cardizem dosing 25 mg initial dose, and repeated -12/27 Begin Cardizem 30 mg every 6 hours ,discontinue Cardizem infusion this afternoon -12/26 Echocardiogram-ejection fraction 2530 percent. No RWMA. Mild tricuspid regurgitation. PASP elevated 52 mmHg -Will increase Lasix 40 mg twice a day, home medication -[id number] of 4 needs anticoagulation but has history of ITP. We will consult hematology for recommendations CAT. Improving. Avoid nephrotoxins - IV hydration -strict intake output -monitor and replete electrolytes -Monitor BUN/creatinine. -Sodium bicarbonate infusion discontinued 12/26 Diabetes mellitus -Sliding-scale insulin for glycemic control -Low dose regimen Gout -Continue allopurinol home med Anxiety disorder -Resume home meds Zoloft 50 mg/day Chronic pain -Home meds Percocet 5/325 every 12 hour when necessary initiated DVT and GI prophylaxis - Lovenox PPI Discharge Planning Discharge in a.m. to rehabilitation versus home healthcare Problem Qualifiers (1) Pneumonia: Qualified Code: J18.1 - Pneumonia of right lower lobe due to infectious organism (2) Respiratory failure: Qualified Code: J96.00 - Acute respiratory failure, unspecified whether with hypoxia or hypercapnia Cj Wong MD Dec 29, 2016 15:17
[2016-12-29] MEDS ORDERED: DILT-60 PO (15:21)
[2016-12-29] MEDS ORDERED: LEVEMIR SQ (15:21)
[2016-12-29] MEDS ORDERED: PRED20 PO (15:21)
[2016-12-29] MEDS ORDERED: AMOX875T2 PO (15:23)
--- NOTE | 2016-12-29 15:23 | HHI.DCPOC ---
Discharge Care Plan Diagnosis: (1) Pneumonia (2) Respiratory failure Your Health Problems Are: Difficulty with ADL Exercise Tolerance Goals to Promote Your Health * To prevent worsening of your condition and complications * To maintain your health at the optimal level Directions to Meet Your Goals Take your medications as prescribed Follow your dietary instruction Follow activity as directed Keep your appointments as scheduled Take your immunizations and boosters as scheduled If your symptoms worsen call your PCP, if no PCP go to Urgent Care Center or Emergency Room Smoking is Dangerous to Your Health. Avoid second hand smoke Call the 24-hour hour crisis hotline for domestic abuse at Cj Wong MD Dec 29, 2016 15:23
[2016-12-29] MEDS: AMOXICILLIN/CLAVULANATE K 875 MG TAB PO SCH ×2 (17:31→21:30)
[2016-12-29] MEDS: NYSTATIN 100,000 U/GM PWD 15 GM BTL TOPICAL SCH ×2 (17:31→21:32)
--- NOTE | 2016-12-29 22:21 | RADRPT ---
EXAM DATE/TIME: 12/29/2016 22:01 [place] COMPARISON: CHEST SINGLE AP, December 27, 2016, 4:36. INDICATIONS : Shortness of breath. RADIATION DOSE: 5.68 CTDIvol (mGy) MEDICAL HISTORY : Cardiovascular disease. Hypertension. Chronic obstructive pulmonary disease. SURGICAL HISTORY : None. ENCOUNTER: Initial ACUITY: 1 day PAIN SCALE: 0/10 LOCATION: chest TECHNIQUE: Volumetric scanning of the chest was performed. Using automated exposure control and adjustment of t he mA and/or kV according to patient size, radiation dose was kept as low as reasonably achievable to obtain optimal diagnostic quality images. FINDINGS: Right middle lobe mass is present measuring 4.1 cm in size highly suspicious for malignancy. Small bi lateral pleural effusions are present with right lung base atelectasis and/or infiltrate and slight l eft lung base atelectasis. There is no pleural effusion. No appreciable pathological adenopathy is s een within the mediastinum. Coronary artery calcifications are seen typically seen with CAD and need to be evaluated clinically. There is ascites in the upper abdomen and the liver appears cirrhotic. CONCLUSION: 1. Right middle lobe mass highly suspicious for bronchogenic carcinoma unless proven otherwise. 2. Bilateral pleural effusions and ascites and the liver appears cirrhotic. Maranda Ordoñez MD on December 29, 2016 at 22:15 Board Certified Radiologist. This report was verified electronically.
[2016-12-30] VITALS: BP 155/70; PULSE 84; RESP 18; TEMP 97.9; O2SAT 97
[2016-12-30] MEDS: ACETAMINOPHEN/HYDROcodone 325 MG/5 MG TAB PO PRN ×3 (01:08→14:32)
[2016-12-30 04:00] VITALS: BP 149/72; PULSE 79; RESP 18; TEMP 97.7; O2SAT 100
[2016-12-30] MEDS: CHLORHEXIDINE GLUCONATE 2 % 1 PACK (2 CLOTHS) TOP SCH (04:00)
[2016-12-30] MEDS: NYSTATIN 100,000 U/GM PWD 15 GM BTL TOPICAL SCH ×2 (06:00→12:21)
[2016-12-30] MEDS: INSULIN NovoLIN REGULAR SUPPLEMENTAL SCALE SQ SCH ×2 (07:00→10:10)
[2016-12-30] MEDS: DILTIAZEM HCL 30 MG TAB PO SCH ×2 (07:01→12:11)
[2016-12-30] MEDS: ENOXAPARIN SODIUM 30 MG/0.3 ML SYRINGE SQ SCH (07:01)
[2016-12-30 08:00] VITALS: BP 159/67; PULSE 80; RESP 18; TEMP 98.1; O2SAT 98
[2016-12-30 08:48] LABS: AUTOMATED NEUTROPHIL # 5.6 TH/MM3 (1.8-7.7); BASOPHIL % 0.1 % (0.0-2.0); EOSINOPHIL % 0.3 % (0.0-4.0); HEMATOCRIT 36.6 % (35.0-46.0); HEMO FLAGS AUTO DIFF; LYMPH % 9.3 % (9.0-44.0); LYMPHOCYTE # 0.6 TH/MM3 (1.0-4.8); MEAN CELL VOLUME 91.2 FL (80.0-100.0); MEAN CORPUSCULAR HEMOGLOBIN 29.3 PG (27.0-34.0); MEAN CORPUSCULAR HGB CONC 32.1 % (32.0-36.0); MONO % 4.6 % (0.0-8.0); NEUT % 85.7 % (16.0-70.0); PLATELET COUNT 98 TH/MM3 (150-450); RED BLOOD COUNT 4.01 MIL/MM3 (4.00-5.30); RED CELL DISTRIBUTION WIDTH 14.4 % (11.6-17.2); WHITE BLOOD COUNT 6.5 TH/MM3 (4.0-11.0)
[2016-12-30 08:54] LABS: BICARBONATE 29.3 MEQ/L (21.0-32.0); MAGNESIUM 1.9 MG/DL (1.5-2.5); POTASSIUM 3.3 MEQ/L (3.5-5.1)
--- NOTE | 2016-12-30 08:59 | MB ---
cc: RITIKA DUMONT DATE OF CONSULTATION 12/29/2016 REASON FOR CONSULTATION History of ITP thrombocytopenia and new onset atrial fibrillation in a patient with pneumonia. PATIENT PROFILE The patient is a 71-year white female. She is . She was born in [place]. She lives in [place], [place]. She has two children both sons. She is visiting the [facility] for a convention put on by the [employer]. 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 She has smoked one and a half packs of cigarettes per day since her teen years. She does not drink alcohol. HISTORY OF PRESENT ILLNESS The patient is a 71-year female who developed acute respiratory distress and presented to the emergency room at [facility]. She had a recent bronchitis which worsened. She was subsequently intubated. She has undergone number of chest x-rays, the earliest one is 12/24 showing an endotracheal tube and a right lower lobe infiltrate. The most recent one was 12/27 shows a slowly improving right lower lung infiltrate. She has a very interesting history. Three years ago she was found to have mild thrombocytopenia which she states was approximately 130,000. 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 She has not required any treatment and the platelet count has essentially been stable. Consistent with this is the fact that when she came into the hospital on 12/25, hemoglobin was 11.4, white count 9500 and platelets 143,000. During the course of her illness, her platelet count has vacillated to as low at 80,000 on 12/27 and currently is 96,000. She has some mild increased bruising historically involving the arms. She has had no other significant bleeding, although on exam today, she has an ecchymoses over the right flank area. She has a history of Crohn's disease and sees a naturopathic physician. She also has gastroparesis as well. She had a colonoscopy in 2014, and upper endoscopy in July 2016. She was told that there was no evidence of any type of cancer. She tells me that she was referred back to her geographic analyst as she had a marker test which was abnormal. PAST SURGICAL HISTORY 1. Tonsillectomy 2. Cholecystectomy 3. She had a wedge resection of the ovary to help induce . 4. Vaginal hysterectomy complicated by perforation of the bladder which required repair. 5. Distal small bowel and colon resection for Crohn disease 10 years ago. 6. Coronary artery stent more than 10 years ago. 7. Biopsy of left and right breast. PAST MEDICAL HISTORY 1. Crohn's disease which the patient states is active and is treated by of a naturopathic physician in the [place] area. 2. COPD 3. Diabetes 4. Hypertension 5. Coronary artery disease 6. ITP dating back three years ago with platelet counts of approximately 120,000. 7. New onset atrial fibrillation. 8. Chronic lower back pain requiring morphine 9. Gastroparesis MEDICATIONS Prior to admission: 1. Allopurinol 2. Atenolol 3. Vitamin D3 4. Nexium 5. Lasix 6. Hydrochlorothiazide 7. Hydrocodone/Acetaminophen 8. Morphine sulfate 15 mg at night 9. Eye drops 10. Compazine 11. Zoloft 12. Tizanidine ALLERGIES The patient had a anaphylactic reaction to REMICADE GIVEN TO HER FOR HER CROHN'S DISEASE. FAMILY HISTORY Mother at 75 of COPD. Father of A stroke at 58. She has two brothers and a sister who are living. REVIEW OF SYSTEMS VISION: She has glasses. HEARINGS: Hearing is fine. CARDIOVASCULAR: No chest pain or palpitations. RESPIRATORY: Severe shortness of breath over the past week without fever. GI: No melena or hematochezia. : No dysuria or frequency. MUSCULOSKELETAL: Severe lower back pain requiring morphine. NEUROLOGIC: No focal weakness. PSYCHIATRIC: Depression and anxiety. LABORATORY TESTS TODAY Hemoglobin 11, white count 6300, platelets 96,000. Lytes, BUN, creatinine, BUN 40, creatinine 1.48, estimated GFR is 35. Liver function test notable only for slight elevation of the AST to 40. PT is 12, PTT of 32. PHYSICAL EXAM Physical examination reveals a both acute and chronically ill-appearing female. She has oxygen. She cannot lie flat without being short of breath and when she sits up and makes an effort to move about, she is short of breath. VITAL SIGNS: Blood pressure is 140/60, respiratory rate is 70, temperature 98.1, O2 sat is 99%, respiratory rate 20. HEAD, EYES, EARS, NOSE, AND THROAT: Head is normocephalic. Sclerae and conjunctivae are normal. Oropharynx unremarkable. There is no cervical, supraclavicular, axillary or inguinal adenopathy. BREASTS: Without masses. HEART: Currently is regular and she appears to be in sinus rhythm on exam. LUNGS: Mild expiratory wheezes. ABDOMEN: Soft. No hepatosplenomegaly. EXTREMITIES: No edema. MUSCULOSKELETAL: No bone pain. NEUROLOGIC: No focal weakness. Additional studies included a EKG on 12/26/2016 showing atrial fibrillation. The patient did have an echocardiogram on 12/26 showing that the left ventricular cavity was mildly dilated, systolic function was moderately to severely reduced. The estimated ejection fraction was in the range of 25-30%, pulmonary artery pressure was mild to moderately increased. ASSESSMENT - PROBLEM #1 The patient presents with what appears to be a pneumonia in the right lung. There is a rounded area of consolidation. Apparently one of her physicians said that she had an abnormal marker study. I am concerned about the possibility of the patient having lung cancer. Plan: CT of thorax without contrast and check a CEA. PROBLEM #2 ITP. Her platelet counts over the past three years have been approximately 120,000. When she came in, her platelet count was 143,000. It has fallen to a isidro of 80,000 and is now 96,000. I believe that the fall in the platelet count is not due to the ITP, it is due to the acute event i.e., respiratory failure and pneumonia. Her platelets normally runs 120,000. There is no reason to treat her ITP and it is not problematic and not and obstacle to anticoagulation . PROBLEM #3 Recent atrial fibrillation brought on by current events. If one looks at the CHADS DS2 VASc score, she has the following: She gets a point for being female, one point for age 65-74, one point for vascular disease as she has a coronary stents, one point for diabetes, one point for hypertension and I believe she could be given a point for congestive heart failure as her ejection fraction is in the range of 25-30%. Adding these numbers up, the sum is six. Six would give an unadjusted ischemic stroke rate of 9.7% per year. Under these circumstances, I believe that it is worthwhile having a bundles hanger speak with her regarding anticoagulation. I do not see a contraindication to anticoagulation because of her history of ITP. I suspect her platelets will continue to rise as she recovers from her respiratory failure. The above has been discussed with Dr. Wong. I have written orders for a CT of the thorax without contrast and a CEA. MD SHON Kraft/RUDOLPH /8:49 PM /8:21 AM [facility]
[2016-12-30] MEDS: OFLOXACIN 0.3% OPTH SOLN 5 ML BTL RIGHT EYE SCH ×2 (09:00→11:48)
[2016-12-30] MEDS ORDERED: PANTOPRAZOLE SOD 40 MG DELAYED RELEASE TAB PO SCH (09:00)
[2016-12-30] MEDS: CHOLESTYRAMINE PO SCH (09:00)
[2016-12-30] MEDS: JUVEN POWDER 1 PACK G-TUBE SCH (09:00)
--- NOTE | 2016-12-30 09:46 | PD.ONC.PN ---
Subjective Subjective Remarks Afebrile overnight. Patient resting comfortably without complaint. Just finished eating breakfast. Objective Data Date Time Temp Pulse Resp B/P Pulse Ox O2 Delivery O2 Flow Rate FiO2 12/30/16 08:00 98.1 80 18 159/67 98 12/30/16 04:13 18 12/30/16 04:00 97.7 79 18 149/72 100 12/30/16 00:00 97.9 84 18 155/70 97 12/29/16 22:41 98 Nasal Cannula 2.00 12/29/16 21:30 94 Nasal Cannula 3.00 12/29/16 20:00 98.1 81 20 147/70 99 12/29/16 19:07 98.1 75 20 142/66 99 12/29/16 18:00 96 Nasal Cannula 2.00 35 12/29/16 18:00 85 12/29/16 16:00 76 12/29/16 16:00 97.6 76 18 143/63 97 12/29/16 14:00 74 12/29/16 13:00 98.2 76 24 136/73 96 12/29/16 12:00 74 12/29/16 10:00 74 Result Diagram: 12/30/16 0740 12/30/16 0740 Laboratory Results Laboratory Tests Test 12/30/16 07:40 White Blood Count 6.5 TH/MM3 Red Blood Count 4.01 MIL/MM3 Hemoglobin 11.7 GM/DL Hematocrit 36.6 % Mean Corpuscular Volume 91.2 FL Mean Corpuscular Hemoglobin 29.3 PG Mean Corpuscular Hemoglobin 32.1 % Concent Red Cell Distribution Width 14.4 % Platelet Count 98 TH/MM3 Mean Platelet Volume 7.5 FL Neutrophils (%) (Auto) 85.7 % Lymphocytes (%) (Auto) 9.3 % Monocytes (%) (Auto) 4.6 % Eosinophils (%) (Auto) 0.3 % Basophils (%) (Auto) 0.1 % Neutrophils # (Auto) 5.6 TH/MM3 Lymphocytes # (Auto) 0.6 TH/MM3 Monocytes # (Auto) 0.3 TH/MM3 Eosinophils # (Auto) 0.0 TH/MM3 Basophils # (Auto) 0.0 TH/MM3 CBC Comment AUTO DIFF Sodium Level 139 MEQ/L Potassium Level 3.3 MEQ/L Chloride Level 101 MEQ/L Carbon Dioxide Level 29.3 MEQ/L Anion Gap 9 MEQ/L Blood Urea Nitrogen 38 MG/DL Creatinine 1.35 MG/DL Estimat Glomerular Filtration 39 ML/MIN Rate Random Glucose 85 MG/DL Calcium Level 8.0 MG/DL Magnesium Level 1.9 MG/DL Administered Medications Medications (Trade) Dose Ordered Sig/Silva Route PRN Reason Start Time Stop Time Status Last Admin Dose Admin Sodium Chloride (NS Flush) 2 ml UNSCH PRN IVF FLUSH AFTER USING IV ACCESS 12/24/16 00:30 12/28/16 04:37 Chlorhexidine Gluconate (Chlorhexidine 2% Cloth) Taper DAILY@04 TOP 12/24/16 04:00 12/20/17 03:59 12/30/16 04:00 Arginine HCl (Jesús Powder) 1 pack BID G-TUBE 12/24/16 09:00 12/28/16 09:30 Ofloxacin (Ocuflox 0.3% Opth Soln) 2 drop QID RIGHT EYE 12/25/16 13:00 12/29/16 21:30 Insulin Detemir (Levemir Inj) 20 units BID SQ 12/25/16 14:00 12/29/16 21:30 Patient Own Medication PT OWN MED: STIO... DAILY INH 12/26/16 09:00 12/29/16 09:20 Acetaminophen (Tylenol) 650 mg Q4H PRN PO PAIN 12/26/16 01:15 12/26/16 20:40 Enoxaparin Sodium (Lovenox Inj) 30 mg Q24H SQ 12/27/16 06:00 12/30/16 07:01 Atenolol (Tenormin) 25 mg DAILY PO 12/27/16 09:00 12/29/16 08:56 Sertraline HCl (Zoloft) 50 mg DAILY PO 12/27/16 09:00 12/29/16 08:54 Allopurinol (Zyloprim) 100 mg DAILY PO 12/27/16 09:00 12/29/16 08:55 Cholecalciferol (Vitamin D3) 2,000 units DAILY PO 12/27/16 09:00 12/29/16 08:55 Diltiazem HCl (Cardizem) 30 mg Q6HR PO 12/27/16 12:00 12/30/16 07:01 Patient Own Medication PT OWN MED: CHOLESTRAMINE PWD, 1 SC... BID PO 12/27/16 12:00 12/29/16 09:25 Ondansetron HCl (Zofran Inj) 4 mg Q6HR PRN IV PUSH NAUSEA OR VOMITING 12/28/16 12:00 12/28/16 12:30 Furosemide (Lasix) 40 mg BID@09,18 PO 12/28/16 18:00 12/29/16 17:11 Acetaminophen/ Hydrocodone Bitart (Pratt 5-325 Mg) 1 tab Q6H PRN PO PAIN SCALE 7 TO 10 12/28/16 13:37 12/30/16 07:49 Hydrocortisone Sodium Succinate (SoluCORTEF INJ) 50 mg Q12HR IV 12/29/16 21:00 12/29/16 21:31 Nystatin (Mycostatin Powder) 1 applic Q8HR TOPICAL 12/29/16 16:00 12/30/16 06:00 Amoxicillin/ Clavulanate Potassium (Augmentin) 875 mg Q12HR PO 12/29/16 16:00 01/06/17 15:59 12/29/16 21:30 Objective Remarks GENERAL: Pleasant elderly female, sitting up in bed SKIN: Warm and dry. HEAD: Normocephalic. EYES: No injection or drainage. NECK: Supple, trachea midline. CARDIOVASCULAR: Regular rate and rhythm RESPIRATORY: Breath sounds equal bilaterally. No accessory muscle use. GASTROINTESTINAL: Abdomen soft, distended EXTREMITIES: No cyanosis MUSCULOSKELETAL: Adequate muscle tone. NEUROLOGICAL: No obvious focal deficit. Awake, alert, and oriented x3. Assessment/Plan Assessment 71y/o female admitted with newly diagnosed lung mass, suspected primary lung carcinoma. Plan 1. extensive discussion held with patient and regarding newly found lung mass on CT Chest. We are 99% certain this is primary lung carcinoma. Dr. Henry called and left several messages for Jacky Chicho's Oncologist in [place] to call him back so he could discuss this diagnosis with her (Dr. Hanny Johnston). We discussed with the patient starting her workup here or going to [place] (where she lives). She emphatically stated she wanted to go home to [place] as soon as possible. We discussed the importance of IMMEDIATE (early next week) follow up. She stated understanding. Emotional support provided. questions answered. feeling normalized. I also called and updated Dr. Wong ( the hospitalist) with this conversation and the patient's desire to be discharged. We discussed holding anticoagulation/antiplatelet therapy until she has had her biopsy. 2. I requested a CD be made with from PACS for the CT Chest so she can bring this to her oncologist. Will also print out Dr. Henry's consult and the CT chest report and her labs so she can bring those to her appointment with her oncologist next week, to expedite this process. Attending Statement The exam, history, and the medical decision-making described in the above note were completed with the assistance of the mid-level provider. I reviewed and agree with the findings presented. I attest that I had a [id number] encounter with the patient on the same day, and personally performed and documented my assessment and findings in the medical record. CEA [address] OF THORAX SHOWS RIGHT LUNG MASS EXTENDING TO PLEURA. The picture is very convincing for lung cancer. patient shown images from CT scan and she and her understand the situation and the urgency of evaluation before further respiratory problems. I spoke with her medical oncologist's nurse and they have agreed to see her immediately. The patient does not want to stay here any longer and will return to her physicians in [place] to pursue work up. Diandra Wilkes Dec 30, 2016 09:46 Victorino Henry MD Dec 30, 2016 19:04
[2016-12-30 09:59] LABS: BANDS 1 % (0-6); EOSINOPHILS 1 % (0-4); NEUTROPHIL # MANUAL DIFF 5.9 TH/MM3 (1.8-7.7); POLYS (SEG NEUTROPHILS) 89 % (16-70); WBC DIFF SAMPLE 100
[2016-12-30 10:00] LABS: KERATOCYTES OCC (NORMAL); PLATELET ESTIMATE SMEAR LOW (NORMAL); PLATELET MORPHOLOGY NORMAL (NORMAL); SCAN/DIFF FINAL DIFF MANUAL
[2016-12-30] MEDS: CHOLECALCIFEROL (VIT D3) 1000 UNIT TAB PO SCH (10:00)
[2016-12-30] MEDS: ALLOPURINOL 100 MG TAB PO SCH (10:00)
[2016-12-30] MEDS: FUROSEMIDE 40 MG TAB PO SCH (10:00)
[2016-12-30] MEDS: ATENOLOL 25 MG TAB PO SCH (10:01)
[2016-12-30] MEDS: [UNRECOGNIZED DRUG - OTHER] INH SCH (10:01)
[2016-12-30] MEDS: OLODATEROL INH SCH (10:01)
[2016-12-30] MEDS: TIOTROPIUM INH SCH (10:01)
[2016-12-30] MEDS: AMOXICILLIN/CLAVULANATE K 875 MG TAB PO SCH (10:01)
[2016-12-30] MEDS: HYDROCORTISONE SOD SUCCINATE 100 MG VIAL IV SCH (10:01)
[2016-12-30] MEDS: SERTRALINE HCL 50 MG TAB PO SCH (10:01)
[2016-12-30] MEDS: INSULIN DETEMIR 100 UNITS/ML VIAL SQ SCH (10:02)
--- NOTE | 2016-12-30 11:00 | HHI.FF ---
Face to Face Verification Diagnosis: (1) Pneumonia (2) Respiratory failure Physical Therapy Order: Evaluate and Treat, Improve ambulation, Strength and gait training Home Health Nursing Order: Medical education Signs/symptoms of disease process Oxygen administration education Medication education-adverse effect Nursing assessment with vital signs I have seen patient Sandra Valentino on 12/30/16. My clinical findings support the need for the requested home health care services because: Patient has SOB I certify that my clinical findings support that this patient is homebound because: Hx COPD- exertion dyspnea/weakness Cj Wong MD Dec 30, 2016 11:00
[2016-12-30] MEDS ORDERED: OXYGENTANK NAS.CANULA (11:01)
[2016-12-30] MEDS ORDERED: WALKER WHEELS/F1 MIS (11:01)
--- NOTE | 2016-12-30 11:13 | HHI.PR ---
Subjective Remarks Follow-up lung mass. She states she wants workup in [place]. Seen with . Discussed with oncology, RN and case management. Objective Vitals Vital Signs Date Time Temp Pulse Resp B/P Pulse Ox O2 Delivery O2 Flow Rate FiO2 12/30/16 08:00 98.1 80 18 159/67 98 12/30/16 04:13 18 12/30/16 04:00 97.7 79 18 149/72 100 12/30/16 00:00 97.9 84 18 155/70 97 12/29/16 22:41 98 Nasal Cannula 2.00 12/29/16 21:30 94 Nasal Cannula 3.00 12/29/16 20:00 98.1 81 20 147/70 99 12/29/16 19:07 98.1 75 20 142/66 99 12/29/16 18:00 96 Nasal Cannula 2.00 35 12/29/16 18:00 85 12/29/16 16:00 76 12/29/16 16:00 97.6 76 18 143/63 97 12/29/16 14:00 74 12/29/16 13:00 98.2 76 24 136/73 96 12/29/16 12:00 74 I/O 12/29/16 12/29/16 12/29/16 12/30/16 12/30/16 12/30/16 07:00 15:00 23:00 07:00 15:00 23:00 Intake Total 496 ml 405 ml 480 ml 100 ml Output Total 200 ml 401 ml Balance 296 ml 4 ml 480 ml 100 ml Intake Oral 120 ml 275 ml 480 ml 100 ml IV Total 376 ml 130 ml Output Urine Total 200 ml 400 ml Stool Total 0 ml 1 ml # Voids 3 1 # Bowel Movements 2 1 Result Diagram: 12/30/16 0740 12/30/16 0740 Imaging Last Impressions Chest CT 12/29/16 0000 Signed Impressions: Service Date/Time: December 22:01 - CONCLUSION: 1. Right middle lobe mass highly suspicious for bronchogenic carcinoma unless proven otherwise. 2. Bilateral pleural effusions and ascites and the liver appears cirrhotic. Maranda Ordoñez MD Chest X-Ray 12/27/16 0600 Signed Impressions: Service Date/Time: Tuesday, December 27, 2016 04:36 - CONCLUSION: Slowly improving right lower lung infiltrate. Joshua J. Siragusa, MD Objective Remarks GENERAL: Well-nourished, well-developed patient. Breathing comfortably on 2 L nasal cannula SKIN: Warm and dry. HEAD: Normocephalic. EYES: No scleral icterus. No injection or drainage. NECK: Supple, trachea midline. No JVD or lymphadenopathy. CARDIOVASCULAR: Regular rate and rhythm without murmurs, gallops, or rubs. Telemetry normal sinus rhythm RESPIRATORY: Breath sounds equal bilaterally. GASTROINTESTINAL: Abdomen soft, non-tender, nondistended. EXTREMITIES: No clubbing cyanosis but with leg edema Procedures None A/P Problem List: (1) Pneumonia ICD Code: J18.9 Status: Acute (2) Respiratory failure ICD Code: J96.90 Status: Resolved Assessment and Plan Respiratory failure-resolving - COPD exacerbation - Pneumonia-right lower lobe - Currently nasal cannula 2 L/m. Walk test COPD exacerbation - Improving wean and discontinue hydrocortisone. Switched antibiotic to Augmentin for a total of 14 days. Cultures negative - DuoNeb scheduled and when necessary - Continue home bronchodilator Stiolto-Respimate a day (home med) Community-acquired pneumonia - 12/24 blood cultures negative growth today -12/24 Strep pneumococcal, and Legionella Urine antigens-negative -Chest x-ray 12/27-improving right lower lung infiltrate Lung mass with elevated CEA. She needs biopsy which patient wants to do outpatient in [place]. A. fib with RVR-resolved Cardiomegaly Cardiomyopathy, acute on chronic systolic HF Pulmonary hypertension -Given 2.5 metoprolol IV 1 dose. Cardizem dosing 25 mg initial dose, and repeated -12/27 Begin Cardizem 30 mg every 6 hours ,discontinue Cardizem infusion this afternoon -12/26 Echocardiogram-ejection fraction 2530 percent. No RWMA. Mild tricuspid regurgitation. PASP elevated 52 mmHg -ct Lasix 40 mg twice a day, home medication -[id number] of 4 needs anticoagulation but has history of ITP. Dw hematology , recommends novel agents but will hold off til biopsy performed CAT. Improving. Avoid nephrotoxins - IV hydration -strict intake output -monitor and replete electrolytes -Monitor BUN/creatinine. -Sodium bicarbonate infusion discontinued 12/26 Diabetes mellitus -Sliding-scale insulin for glycemic control -Low dose regimen Gout -Continue allopurinol home med Anxiety disorder -Resume home meds Zoloft 50 mg/day Chronic pain -Home meds Percocet 5/325 every 12 hour when necessary initiated DVT and GI prophylaxis - Lovenox PPI Discharge Planning Discharge today Problem Qualifiers (1) Pneumonia: Qualified Code: J18.1 - Pneumonia of right lower lobe due to infectious organism (2) Respiratory failure: Qualified Code: J96.00 - Acute respiratory failure, unspecified whether with hypoxia or hypercapnia Cj Wong MD Dec 30, 2016 11:13
--- NOTE | 2016-12-30 11:14 | HHI.DS ---
Discharge Summary Admission Date Dec 24, 2016 at 02:23 Discharge Date: Dec 30, 2016 Admitting Diagnosis septic shock, right lower lobe pneumonia, lactic acidosis (1) Pneumonia ICD Code: J18.9 Diagnosis: Principal (2) Respiratory failure ICD Code: J96.90 Diagnosis: Principal Procedures None Brief History - From Admission 71-year-old female presents via EMS for respiratory distress and respiratory failure. The patient was recently diagnosed with bronchitis and has been dealing with shortness of breath and chest congestion. The patient used her inhaler several times earlier today without any alleviation of her symptoms and EMS was subsequently called. Per medical record when EMS arrived the patient was short of breath, had audible wheezing, with a respiratory rate of 30, they then stated she had increased work of breathing and her GCS dropped to 9 with significant increase in respiratory rate and work of breathing. Therefore, EMS initially tried to place the patient on BiPAP, but subsequent intubated the patient in the field. CBC/BMP: 12/30/16 0740 12/30/16 0740 Significant Findings Laboratory Tests Test 12/27/16 12/28/16 12/29/16 12/30/16 16:55 03:31 03:52 07:40 Potassium Level 3.4 MEQ/L 3.3 MEQ/L 3.3 MEQ/L (3.5-5.1) (3.5-5.1) (3.5-5.1) Phosphorus Level 2.1 MG/DL (2.5-4.9) Red Blood Count 3.63 MIL/MM3 3.69 MIL/MM3 (4.00-5.30) (4.00-5.30) Hemoglobin 11.0 GM/DL 11.1 GM/DL (11.6-15.3) (11.6-15.3) Hematocrit 32.2 % 32.8 % (35.0-46.0) (35.0-46.0) Platelet Count 104 TH/MM3 96 TH/MM3 98 TH/MM3 (150-450) (150-450) (150-450) Blood Urea Nitrogen 42 MG/DL (7-18) 40 MG/DL (7-18) 38 MG/DL (7-18) Creatinine 1.47 MG/DL 1.48 MG/DL 1.35 MG/DL (0.50-1.00) (0.50-1.00) (0.50-1.00) Estimat Glomerular Filtration 35 ML/MIN (>89) 35 ML/MIN (>89) 39 ML/MIN (>89) Rate Random Glucose 60 MG/DL (74-106) Calcium Level 7.0 MG/DL 7.2 MG/DL 8.0 MG/DL (8.5-10.1) (8.5-10.1) (8.5-10.1) Protein Corrected Calcium 7.6 MG/DL 7.9 MG/DL (8.5-10.1) (8.5-10.1) Total Protein 6.0 GM/DL 5.8 GM/DL (6.4-8.2) (6.4-8.2) Neutrophils (%) (Auto) 85.0 % 85.7 % (16.0-70.0) (16.0-70.0) Lymphocytes # (Auto) 0.6 TH/MM3 0.6 TH/MM3 (1.0-4.8) (1.0-4.8) Platelet Estimate LOW (NORMAL) LOW (NORMAL) Carcinoembryonic Antigen 74.3 NG/ML (0.2-5.0) Neutrophils % (Manual) 89 % (16-70) Lymphocytes % 8 % (9-44) Keratocytes OCC (NORMAL) Imaging Last Impressions Chest CT 12/29/16 0000 Signed Impressions: Service Date/Time: December 22:01 - CONCLUSION: 1. Right middle lobe mass highly suspicious for bronchogenic carcinoma unless proven otherwise. 2. Bilateral pleural effusions and ascites and the liver appears cirrhotic. Maranda Ordoñez MD Chest X-Ray 12/27/16 0600 Signed Impressions: Service Date/Time: Tuesday, December 27, 2016 04:36 - CONCLUSION: Slowly improving right lower lung infiltrate. Joshua Ordoñez MD PE at Discharge GENERAL: Well-nourished, well-developed patient. Breathing comfortably on 2 L nasal cannula SKIN: Warm and dry. HEAD: Normocephalic. EYES: No scleral icterus. No injection or drainage. NECK: Supple, trachea midline. No JVD or lymphadenopathy. CARDIOVASCULAR: Regular rate and rhythm without murmurs, gallops, or rubs. Telemetry normal sinus rhythm RESPIRATORY: Breath sounds equal bilaterally. GASTROINTESTINAL: Abdomen soft, non-tender, nondistended. EXTREMITIES: No clubbing cyanosis but with leg edema Hospital Course Respiratory failure-resolving - COPD exacerbation - Pneumonia-right lower lobe - Currently nasal cannula 2 L/m. Walk test COPD exacerbation - Improving wean and discontinue hydrocortisone. Switched antibiotic to Augmentin for a total of 14 days. Cultures negative - DuoNeb scheduled and when necessary - Continue home bronchodilator Stiolto-Respimate a day (home med) Community-acquired pneumonia - 12/24 blood cultures negative growth today -12/24 Strep pneumococcal, and Legionella Urine antigens-negative -Chest x-ray 12/27-improving right lower lung infiltrate Lung mass with elevated CEA. She needs biopsy which patient wants to do outpatient in [place]. A. fib with RVR-resolved Cardiomegaly Cardiomyopathy, acute on chronic systolic HF Pulmonary hypertension -Given 2.5 metoprolol IV 1 dose. Cardizem dosing 25 mg initial dose, and repeated -12/27 Begin Cardizem 30 mg every 6 hours ,discontinue Cardizem infusion this afternoon -12/26 Echocardiogram-ejection fraction 2530 percent. No RWMA. Mild tricuspid regurgitation. PASP elevated 52 mmHg -ct Lasix 40 mg twice a day, home medication -[id number] of 4 needs anticoagulation but has history of ITP. Dw hematology , recommends novel agents but will hold off til biopsy performed CAT. Improving. Avoid nephrotoxins - IV hydration -strict intake output -monitor and replete electrolytes -Monitor BUN/creatinine. -Sodium bicarbonate infusion discontinued 12/26 Diabetes mellitus -Sliding-scale insulin for glycemic control -Low dose regimen Gout -Continue allopurinol home med Anxiety disorder -Resume home meds Zoloft 50 mg/day Chronic pain -Home meds Percocet 5/325 every 12 hour when necessary initiated Cirrhosis on CT hx fatty liver. Does not drink. Op f/u DVT and GI prophylaxis - Lovenox PPI Pt Condition on Discharge: Stable Discharge Disposition: Disch w/ Home Health Serv Discharge Time: > 30 minutes Discharge Instructions DIET: Follow Instructions for: Diabetic Diet Activities you can perform: Regular-No Restrictions Activities to Avoid: Driving Follow up Referrals: PCP Follow-up - 1 Week New Orders: BASIC METABOLIC PROF - 01/02/17 New Medications: Diltiazem CD 24 HR (Diltiazem CD 24 HR) 120 Mg Caper 120 MG PO DAILY #30 Ref 0 CAP Oxygen tank (Oxygen tank) 1 Ea Tank 2 LITER COLLEEN.CANULA CONTINUOUS Oxygen Concentrator Portable Gaseous 2 L/min via Nasal Cannula Continuous For 99 months HYPOXEMIA PREVENTION #1 CYLINDER Prednisone (Prednisone) 20 Mg Tab 20 MG PO DIRECTED 40 MG twice a day x 3 days, then 20 MG daily x 3 days, then 10 MG daily x 3 days Inflammation #11 Ref 0 TAB Walker with Front Wheels (Walker with Front Wheels) 1 Mis Mis 1 EA .ROUTE DIRECTED #1 Ref 0 EA Amoxicillin-Clavulanate (Amoxicillin-Clavulanate) 875-125 mg Tab 875 MG PO Q12HR Stop date 01/06/2017 Infection #14 TAB Insulin Detemir Inj (Levemir Inj) 1,000 unit/ 10 ML Vial 20 UNITS SQ BID Blood Sugar Management #60 INJECTION Continued Medications: Allopurinol (Allopurinol) 100 Mg Tab 100 MG PO DAILY Gout #30 Ref 0 TAB Atenolol (Atenolol) 25 Mg Tab 25 MG PO DAILY Blood Pressure Management #30 TAB Cholecalciferol (Vitamin D3) 2,000 Unit Cap 2000 UNITS PO DAILY Nutritional Supplement #1 Ref 0 BOTTLE Dextromethorphan Polistirex Liq (Robitussin 12 Hour Cough Liq) 30 Mg/5 Ml Anupama 5 ML PO Q12H PRN COUGH #89 Ref [address] (Nexium 24 HR) 20 Mg Tabdr 22.3 MG PO DAILY Furosemide (Lasix) 40 Mg Tab 40 MG PO BID #60 Ref 0 TAB Hydrocodone-Acetaminophen (Hydrocodone-Acetaminophen) 5-325 mg Tab 1 TAB PO Q12 PRN PAIN Ref 0 TAB Ofloxacin Opth Drops (Ofloxacin Opth Drops) 0.3 % Drops 1 DROP EACH EYE Q6HR #1 BOTTLE Sertraline (Zoloft) 50 Mg Tab 50 MG PO DAILY #30 Ref 0 TAB Tiotropium-Olodaterol Inh (Stiolto Respimat Inh) 2.5-2.5 Mcg/Act Aero 2 PUFF INH DAILY COPD #1 Ref 0 INHALER Cj Wong MD Dec 30, 2016 11:14
[2016-12-30 11:45] VITALS: O2SAT 98
[2016-12-30 12:00] VITALS: BP 151/68; PULSE 82; RESP 18; TEMP 98.5; O2SAT 96
== END 2016-12-30 14:35 | disposition home health service (06) | DRG 208 ==
LOC: NEPC 00:28 → NEDA 02:23 → NEDH 03:30 → N03A 09:51 → N04B 12-29 18:10
PROVIDERS: ADMIT Internal Medicine; ATTEND Internal Medicine
PROC: 5A1935Z Respiratory Ventilation, Less than 24 Consecutive Hours (ICD-10-PCS; principal; 2016-12-24)
DX: J96.00 Acute respiratory failure, unspecified whether with hypoxia or hypercapnia (principal); R65.21 Severe sepsis with septic shock; A41.9 Sepsis, unspecified organism; I50.23 Acute on chronic systolic (congestive) heart failure; J18.9 Pneumonia, unspecified organism; D69.3 Immune thrombocytopenic purpura; N17.9 Acute kidney failure, unspecified; I42.9 Cardiomyopathy, unspecified; J44.0 Chronic obstructive pulmonary disease with (acute) lower respiratory infection; K50.90 Crohn's disease, unspecified, without complications; K31.84 Gastroparesis; I27.2 Other secondary pulmonary hypertension; I48.91 Unspecified atrial fibrillation; R91.8 Other nonspecific abnormal finding of lung field; I51.7 Cardiomegaly; M10.9 Gout, unspecified; F41.9 Anxiety disorder, unspecified; G89.29 Other chronic pain; K76.0 Fatty (change of) liver, not elsewhere classified; K74.60 Unspecified cirrhosis of liver; Z91.040 Latex allergy status; I25.10 Atherosclerotic heart disease of native coronary artery without angina pectoris; Z95.5 Presence of coronary angioplasty implant and graft; F17.210 Nicotine dependence, cigarettes, uncomplicated; E66.9 Obesity, unspecified; Z68.34 Body mass index [BMI] 34.0-34.9, adult; E11.9 Type 2 diabetes mellitus without complications; I10 Essential (primary) hypertension; M54.5 Low back pain
CPT/HCPCS: 36600; 51702; 71010; 71250; 76937; 80048; 80053; 80202; 81001; 82378; 82550; 82552; 82570; 82805; 82948; 83605; 83735; 83880; 84100; 84132; 84155; 84300; 84484; 85007; 85025; 85027; 85610; 85730; 87040; 87205; 87449; 87641; 93005; 93306; 94002; 94003; 94150; 94620; 94640; 94664; 96365; 96368; 96375; J0456; J0692; J1650; J1720; J1940; J2060; J2250; J2405; J2543; J3010; J3370; J7030; J7040; J7050